=== PATIENT | female | born 1975 | race Caucasian/White ===

== ENCOUNTER 2020-09-02 02:31 | Outpatient (CLI) | payer OTHER, SELFPAY ==
[2020-09-02 19:46] LABS: SARS-CoV-2 RNA PCR Negative
== END 2020-09-02 02:32 | disposition home or self-care (01) ==
LOC: ANHCOVIDDT 02:31
PROVIDERS: PCP Family Medicine; Visit Provider Internal Medicine Gastroenterology
DX: Z01.818 Encounter for other preprocedural examination (principal); Z20.828 Contact with and (suspected) exposure to other viral communicable diseases
CPT/HCPCS: 87635; C9803; U0003

== ENCOUNTER 2020-09-05 04:34 | Day surgery (SDC) | payer OTHER, SELFPAY ==
[2020-09-01 11:25] VITALS: BMI 28.0
[2020-09-05 11:56] VITALS: BP 100/63; PULSE 68; RESP 16; TEMP 36.6; O2SAT 94
[2020-09-05] MEDS: LACTATED RINGERS 1,000 ML 150 ML IV CONT (11:57)
--- NOTE | 2020-09-05 12:31 | P.PNAN_ITS ---
Anes - Initial Pre Proc Eval Procedure: Operation Date: 09/05/20 13:15 Proposed Procedures p Colonoscopy - Edgar Jorgensen MD Date/Time: 09/05/20 12:31 Surgeon: Edgar Jorgensen MD Pre Op Diagnosis: Rectal Bleeding Patient Data Age: 45 Gender: F Height: 1.6 m Weight: 70.8 kg Last Vital Signs Temp 36.6 C 09/05/20 11:56 Pulse 68 09/05/20 11:56 Resp 16 09/05/20 11:56 BP 100/63 09/05/20 11:56 Pulse Ox 94 09/05/20 11:56 Allergies Allergy/AdvReac Type Severity Reaction Status Date / Time Penicillins Allergy Intermediate Hives Verified 09/05/20 11:50 Home Medications Medication Instructions Recorded Confirmed Type levothyroxine 137 mcg PO DAILY 09/01/20 09/01/20 History Patient hx anesthesia problems: none Family hx anesthesia problems: none PMFSH Past Medical History Medical History Hypothyroidism Family History Family History Mother Family history of malignant neoplasm of breast in first degree relative Social History Social History Smoking status: Never smoker Second hand tobacco smoke exposure: No Alcohol intake: current Substance use: never Substance use type: does not use Gender identity (if verbalized by the patient): Female Spiritual care concerns: No Agree to blood products: Yes Anes - Eval Final PreProcedure Day of Procedure 09/05/20 12:31 Patient weight: overweight Heart: regular rate and rhythm Lungs: clear to auscultation and normal air movement Airway: Mallampati scale class II Neurological: alert and oriented Last oral intake: >/= 8 hours ASA classification: II Emergent: no Anesthetic plan: proceed Anesthesia type and monitoring: general GIVS Informed Consent: The patient's anesthetic plan and its attendant risks and benefits were discussed with the patient/family/POA. Questions were solicited and answers provided to the satisfaction of the patient/family/POA.
--- NOTE | 2020-09-05 12:40 | PM.HPGS ---
History of Present Illness History of Present Illness Consent: Risks, benefits, and alternatives have been discussed and questions answered. Patient agrees to proceed with procedure. Chief complaint: Rectal Bleeding Narrative: Alka Montano is a 45 year old female with rectal bleeding, never had a colonoscopy Review of Systems Constitutional: Constitutional: Denies headache(s) and Denies weakness Eyes: Eyes: Denies blurry vision ENT: Reports Normal hearing present, Denies headache(s) and Denies neck pain Cardiovascular: Cardiovascular: Denies chest pain and Denies dyspnea Respiratory: Respiratory: Denies dyspnea Gastrointestinal: Gastrointestinal: Reports no additional gastrointestinal complaints Genitourinary: Genitourinary: Denies dysuria Musculoskeletal: Musculoskeletal: Denies neck pain Integumentary/Breasts: Skin/Breast: Denies dry skin Neurologic: Reports Normal hearing present, Denies headache(s) and Denies weakness Psychiatric: Psychiatric: Denies anxiety Endocrine: Endocrine: Denies change in body appearance Hematologic/Lymphatic: Hematologic/Lymphatic: Denies easy bleeding Allergic/Immunologic: Allergic/Immunologic: Denies urticaria PMFSH Past Medical History Medical History Hypothyroidism Family History Family History Mother Family history of malignant neoplasm of breast in first degree relative Social History Social History Smoking status: Never smoker Second hand tobacco smoke exposure: No Alcohol intake: current Substance use: never Substance use type: does not use Gender identity (if verbalized by the patient): Female Spiritual care concerns: No Agree to blood products: Yes Meds Home Medications and Allergies Home Medications Medication Instructions Recorded Confirmed Type levothyroxine 137 mcg PO DAILY 09/01/20 09/01/20 History Allergies Allergy/AdvReac Type Severity Reaction Status Date / Time Penicillins Allergy Intermediate Hives Verified 09/05/20 11:50 Vital Signs Vital Signs - 24 hr 09/05/20 11:56 Temperature 97.9 F Pulse Rate 68 Respiratory Rate 16 Blood Pressure 100/63 Pulse Oximetry 94 Exam Const: General: comfortable and no acute distress HENMT: General nose exam: Normal nares present Eyes: General: appearance normal, both eyes and all related structures Neck: Neck: no JVD Resp: Auscultation: clear to auscultation bilaterally Cardio: Rate: regular rate Rhythm: regular rhythm GI: Inspection: non-distended GI Palp: Yes Soft to palpation Skin: General skin exam: normal color Neuro: General: gait normal Speech: normal speech Extrem: General: normal to inspection Psych: Mental Status: mental status grossly normal Assessment and Plan Assessment and plan (1) BRBPR (bright red blood per rectum): Code(s): K62.5 - Hemorrhage of anus and rectum Status: Acute Assessment and Plan: will proceed with colonoscopy
[2020-09-05 13:03] VITALS: BP 111/85; PULSE 88; RESP 23; O2SAT 100
[2020-09-05 13:13] VITALS: BP 88/64; PULSE 84; RESP 19; O2SAT 100
[2020-09-05 13:23] VITALS: BP 104/69; PULSE 74; RESP 18; O2SAT 100
== END 2020-09-05 13:30 | disposition home or self-care (01) ==
PROVIDERS: PCP Family Medicine; Visit Provider Internal Medicine Gastroenterology
PROC: 0DJD8ZZ Inspection of Lower Intestinal Tract, Via Natural or Artificial Opening Endoscopic (ICD-10-PCS; CPT 45378; principal; 2020-09-05 13:15)
DX: K92.1 Melena (principal); K64.8 Other hemorrhoids; E03.9 Hypothyroidism, unspecified
CPT/HCPCS: 45378; J2370; J2704; J7120

== ENCOUNTER 2022-06-23 09:57 | Outpatient (CLI) | payer OTHER, SELFPAY ==
[2022-06-23 18:55] LABS: Cholesterol 234 mg/dL (0-200); HDL Direct 70 mg/dL; Triglycerides 94 mg/dL (<150)
[2022-06-23 19:06] LABS: LDL Cholesterol Direct 116 mg/dL
[2022-06-23 19:26] LABS: Thyroid Stimulating Hormone 0.879 uIU/mL (0.465-4.680)
[2022-06-23 19:45] LABS: Hemoglobin A1C 4.9 % (<5.7)
[2022-06-23 19:48] LABS: Free T4 Free Thyroxine 1.54 ng/mL (0.78-2.19)
== END 2022-06-23 09:58 | disposition home or self-care (01) ==
LOC: ANHGOSHLAB 09:59
PROVIDERS: PCP Emergency Medicine; Visit Provider Emergency Medicine
DX: E03.9 Hypothyroidism, unspecified (principal); E66.9 Obesity, unspecified
CPT/HCPCS: 36415; 80061; 83036; 84439; 84443

== ENCOUNTER → 2022-06-23 13:09 | Outpatient (CLI) | payer OTHER, SELFPAY ==
--- NOTE | ~2022-06-23 | MM_ITS ---
EXAMINATION: MM screening peg BI w irma HISTORY: Screening mammogram TECHNIQUE: Craniocaudal and mediolateral oblique 3-D tomosynthesis images were obtained and synthetic 2-D images were generated. Bilateral rotated lateral CC views. CAD analysis was submitted and interp reted. COMPARISON: No prior mammogram is available for comparison at this institution. BREAST PARENCHYMAL COMPOSITION: The breasts are extremely dense, which lowers the sensitivity of mamm ography. FINDINGS: Microcalcifications are noted in the lower inner quadrant of the right breast; magnificatio n views are recommended. Bilateral mammographic asymmetries; bilateral diagnostic mammography and breast ultrasound examinatio n are recommended. IMPRESSION: 1. Microcalcifications, lower inner right breast and bilateral mammographic asymmetries 2. Bilateral diagnostic mammography and breast ultrasound examination are recommended. BI-RADS Category 0: Incomplete: Needs additional imaging evaluation. Reviewed, dictated and finalized at location A. IMPRESSION: 1. Microcalcifications, lower inner right breast and bilateral mammographic asy mmetries 2. Bilateral diagnostic mammography and breast ultrasound examination are recom mended. BI-RADS Category 0: Incomplete: Needs additional imaging evaluation.
== END ==
PROVIDERS: PCP Emergency Medicine; Visit Provider Obstetrics & Gynecology
DX: Z12.31 Encounter for screening mammogram for malignant neoplasm of breast (principal); R92.8 Other abnormal and inconclusive findings on diagnostic imaging of breast
CPT/HCPCS: 77063; 77067

== ENCOUNTER → 2022-07-14 07:57 | Outpatient (CLI) | payer OTHER, SELFPAY ==
--- NOTE | ~2022-07-14 | MMUS_ITS ---
EXAMINATION: MM diagnostic peg BI w irma, US breast BI complete HISTORY: Right microcalcifications and bilateral mammographic asymmetries on 06/23/2022 screening mammo gram TECHNIQUE: Additional 3-D tomosynthesis images of both breasts were performed and synthetic 2-D image s were generated. Right breast magnification views. CAD analysis was submitted and interpreted. High resolution complete bilateral breast ultrasound including all 4 quadrants and subareolar area of each breast was performed. COMPARISON: 06/23/2022 bilateral screening mammogram examination BREAST PARENCHYMAL COMPOSITION: The breasts are extremely dense, which lowers the sensitivity of mamm ography. FINDINGS: MAMMOGRAPHIC FINDINGS: No reproducible suspicious mass or architectural distortion is evident. There are grouped granular appearing and minimal linear microcalcifications are noted lower outer rig ht breast. These have increased in number since 05/04/2021. Stereotactic biopsy is recommended. ULTRASOUND: Right breast: No suspicious mass or shadowing or other significant sonographic finding is noted. Left breast: 9:00 2.5 cm from nipple: 5.6 mm benign cyst with through transmission posterior enhancement. No inter nal vascularity. No suspicious left breast mass or shadowing is detected. IMPRESSION: 1. Grouped indeterminate microcalcifications in the lower outer right breast 2. Stereotactic biopsy of right lower outer quadrant breast microcalcifications is recommended BI-RADS category 4, suspicious findings. Dr. Coy telephoned the report and stereotactic biopsy recommendation of the right breast on 07/14 at 0923 hours to Electromechanical Equipment Assembler Shima. Reviewed, dictated and finalized at location A. IMPRESSION: 1. Grouped indeterminate microcalcifications in the lower outer right breast 2. Stereotactic biopsy of right lower outer quadrant breast microcalcifications is recommended BI-RADS category 4, suspicious findings. Dr. Coy telephoned the report and stereotactic biopsy recommendation of the ri ght breast on 07/14 2022 at 0923 hours to Electromechanical Equipment Assembler Shima. IMPRESSION: 1. Grouped indeterminate microcalcifications in the lower outer right breast 2. Stereotactic biopsy of right lower outer quadrant breast microcalcifications is recommended BI-RADS category 4, suspicious findings. Dr. Coy telephoned the report and stereotactic biopsy recommendation of the [facility] breast on 07/14 2022 at 0923 hours to Electromechanical Equipment Assembler Shima.
== END ==
PROVIDERS: PCP Obstetrics & Gynecology; Visit Provider Obstetrics & Gynecology
DX: R92.8 Other abnormal and inconclusive findings on diagnostic imaging of breast (principal)
CPT/HCPCS: 76641; 77062; 77066; G0279

== ENCOUNTER 2023-09-07 08:17 | Outpatient (CLI) | payer OTHER, SELFPAY ==
[2023-09-07 12:01] LABS: Hematocrit 41.5 % (37.0-47.0); Hemoglobin 13.2 g/dL (12.0-15.0); Mean Corpuscular HGB Conc 31.8 g/dl (32-36); Mean Corpuscular Hemoglobin 29.7 pg (26-34); Mean Corpuscular Volume 93.3 fl (80-100); Mean Platelet Volume 10.8 fl (7.4-10.4); Platelet Count Result 316 k/mm3 (150-375); Red Blood Count 4.45 M/mm3 (4.2-5.4); Red Cell Distribution Width 13.1 % (11.5-14.5); White Blood Count 5.6 K/mm3 (4.5-10.0)
[2023-09-07 12:12] LABS: Alanine Aminotransferase 17 U/L (6-35); Alkaline Phosphatase 55 U/L (38-126); Anion Gap 5 mmol/L (8-16); Aspartate Amino Transferase 33 U/L (14-36); Bilirubin,Total 0.4 mg/dL (0.2-1.3); Blood Urea Nitrogen 9 mg/dL (7-17); Calcium 8.9 mg/dL (8.4-10.2); Carbon Dioxide 30 mmol/L (22-30); Chloride 106 mmol/L (98-107); Cholesterol 186 mg/dL (0-200); Estimated Glomerular Filt Rate > 60; Glucose 91 mg/dL (65-110); HDL Direct 52 mg/dL; Potassium 4.4 mmol/L (3.4-5.0); Sodium 141 mmol/L (137-145); Triglycerides 51 mg/dL (<150)
[2023-09-07 12:24] LABS: LDL Cholesterol Direct 103 mg/dL
[2023-09-07 12:40] LABS: Thyroid Stimulating Hormone 0.029 uIU/mL (0.465-4.680)
[2023-09-07 13:03] LABS: Free T4 Free Thyroxine 2.19 ng/mL (0.78-2.19)
== END 2023-09-07 08:18 | disposition home or self-care (01) ==
LOC: ANHGOSHLAB 08:19
PROVIDERS: PCP Emergency Medicine; Visit Provider Physician Assistant
DX: E66.9 Obesity, unspecified (principal); E78.5 Hyperlipidemia, unspecified
CPT/HCPCS: 36415; 80053; 80061; 84439; 84443; 85027

== ENCOUNTER 2023-09-12 12:48 | Outpatient (CLI) | payer OTHER, SELFPAY ==
[2023-09-12 19:49] LABS: Free T4 Free Thyroxine 1.23 ng/mL (0.78-2.19)
== END 2023-09-12 12:49 | disposition home or self-care (01) ==
LOC: ANHGOSHLAB 12:51
PROVIDERS: PCP Emergency Medicine; Visit Provider Emergency Medicine
DX: E03.9 Hypothyroidism, unspecified (principal)
CPT/HCPCS: 36415; 84439; 84443

== ENCOUNTER 2024-01-20 15:43 | Outpatient (CLI) | payer OTHER, SELFPAY ==
[2024-01-20 18:59] LABS: Free T4 Free Thyroxine 1.36 ng/mL (0.78-2.19)
[2024-01-20 19:13] LABS: Thyroid Stimulating Hormone 0.101 uIU/mL (0.465-4.680); Total Triiodothyronine (T3) 0.95 NG/ML (0.97-1.69)
== END 2024-01-20 15:44 | disposition home or self-care (01) ==
LOC: ANHGOSHLAB 15:45
PROVIDERS: PCP Emergency Medicine; Visit Provider Emergency Medicine
DX: E03.9 Hypothyroidism, unspecified (principal)
CPT/HCPCS: 36415; 84439; 84443; 84480

== ENCOUNTER 2024-12-28 08:44 | Outpatient (CLI) | payer OTHER, SELFPAY ==
--- OUTSIDE RECORDS SUMMARY | 2024-12-28 09:07 | XMS_ITS | Referral Summary ---
Author Organization [facility] Address [address] [place] [address] Care Team Providers Care General Repair Mechanic Name Role Phone Rajan Adams MD Unavailable [phone] Rajan Adams MD Unavailable [phone] Ori Lucas MD Primary Care Provider [phone] Encounters Date Type Department Care Team Description 10/31/2024 Orders Only [facility] [address] [place] [address] Unknown, Notinfile from Last 3 Months Allergies Active Allergy Reactions Criticality Noted Date Comments Penicillins Rash Medium 08/24/2022 Medications levothyroxine (SYNTHROID) 137 mcg tabletIndicatio ns:hypothyroidi sm Take 1 tablet (137 mcg total) by mouth increment manager before breakfast 2 Active UNABLE TO FINDIndications :supplement Take 1 each by mouth 2 (two) times a day Spark drinks Active ibuprofen (ADVIL,MOTRIN) 200 mg tab/cap Take 2 tablet/capsule (400 mg total) by mouth every 6 (six) hours as needed for pain Active polyethylene glycol (MIRALAX) 17 gram packetIndicatio ns:constipation Take 1 packet (17 g total) by mouth daily as needed for constipation Active cyclobenzaprine (FLEXERIL) 10 mg tabletIndicatio ns:Post Surgical Pain Take one tablet up to 3 times per day as needed for muscle spasms. 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 2-4 times a month 02/23/2023 Q2: How many drinks containi ng alcohol do you have on a typical day when you are drinking? 1 or 2 02/23/2023 Q3: How often do you have si x or more drinks on one occasion? Never 02/23/2023 Personal Safety Answer Date Recorded Have you ever been in or are you currently in a harmful physical or emotional relationship or is someone making you feel afraid or unsafe? Denies 02/23/2023 Comments No Sex and Gender Information Value Date Recorded Sex Assigned at Not on file Legal Sex Female 10:55 AM CDT Gender Identity Not on file Sexual Orientation Not on file Last Filed Vital Signs Vital Sign Reading Time Taken Comments Blood Pressure 107/55 02/23/2023 1:05 PM CDT Pulse 83 02/23/2023 1:05 PM CDT Temperature 36.6 C (97.9 F) 02/23/2023 1:05 PM CDT Respiratory Rate 14 02/23/2023 1:05 PM CDT Oxygen Saturation 97% 02/23/2023 1:05 PM CDT Inhaled Oxygen Concentration - - Weight 72.6 kg (160 lb 0.9 oz) 06/08/2024 2:33 P M CDT Height 160 cm (5' 2.99 ) 06/08/2024 2:33 PM CDT Body Mass Index 28.36 06/08/2024 2:33 PM CDT Plan of Treatment Not on file Medical Devices Implanted Type Area Customer Service Technician Device Identifier Shelf Expiration Date Model / Serial / Lot [employer] 13.4cm High Strength Cohesive Plus Smooth P5.3cm High Projection [id number] - [id number] - [id number] Implanted:Qty: 1 on 02/23/2023 by Andrzej Miles MD at [facility] Breast Left: Breast [employer] 11/05/2027 [id number] / [id number] / Description:Implant pause do ne prior to opening all implants [employer] 13.4cm High Strength Cohesive Plus Smooth P5.3cm High Projection [id number] - [id number] - [id number] Implanted:Qty: 1 on 02/23/2023 by Andrzej Miles MD at [facility] Breast Right: Breast [employer] 11/14/2027 [id number] HP / [id number] / [employer] Magseed 18ga 7cm Marker Breast Biopsy [id number] - [id number] Implanted:Qty: 1 on 09/27/2022 at [facility] Right: Breast [employer] [id number] 06/16/2026 [id number] / / [id number] [employer] Alloderm Select [id number] Allograft Regenerative Thk.4-2.4mm Thick [id number] - [id number] Implanted:Qty: 1 on 11/18/2022 by Andrzej Miles MD at [facility] Left: Breast [employer] 02/14/2024 [id number] / / [id number] Description:Implant pause do ne prior to opening all implants [employer] Alloderm Select 75m22tr Allograft Regenerative Thk.4-2.4mm Thick [id number] - [id number] Implanted:Qty: 1 on 11/18/2022 by Andrzej Miles MD at [facility] Right: Breast [employer] 02/14/2024 [id number] / / [id number] Explanted Type Area Customer Service Technician Device Identifier Shelf Expiration Date Model / Serial / Lot [employer] Implant Mammary Natrelle Te Smooth [id number]-[id number]-[id number] With Fourte [id number]-58-[id number] - [id number] - [id number] Implanted:Qty: 1 on 11/18/2022 by Andrzej Miles MD at [facility] Explanted:Qty: 1 on 02/23/2023 by Andrzej Miles MD at [facility] Left: Breast [employer] 01/12/2027 133S-MX-13 -T / [id number] / [id number] Description:Filled with 100m l saline [employer] Implant Mammary Natrelle Te Smooth [id number]-Cj-79-T With Fourte [id number]-96-[id number] - [id number] - [id number] Implanted:Qty: 1 on 11/18/2022 by Andrzej Miles MD at [facility] Explanted:Qty: 1 on 02/23/2023 at [facility] Right: Breast [employer] 02/19/2027 133S-MX-13 -T / [id number] / Description:Filled with 100m l saline Upon explantation, lot # [id number] noted Procedures Procedure Name Priority Date/Time Associated Diagnosis Comments SURGICAL PATHOLOGY Routine 10/31/2024 12 :00 AM SEWING INSPECTOR from Last 3 Months Results * Surgical pathology (10/31/2024 12:00 AM SEWING INSPECTOR) Skin, shave biopsy 10/31/2024 11/02/2024 7:08 AM SEWING INSPECTOR Narrative 11/06/2024 5:18 PM SEWING INSPECTOR [facility] results best viewed via link to PDF [facility] [address] [place] [address], [address], [place] [address] [email or web address] Note to Patients: This report may contain a detailed description of human tissue sent by a health care provider to the laboratory for pathologic evaluation. The content of this report is essential for diagnosis and may provide important critical findings. This information may be unfamiliar to patients to review without a medical professional present. It is advised that the patient review this report in the presence of a health care provider who can answer questions and explain the details. FINAL REPORT Patient Information: PATIENT NAME: ALKA MONTANO SEX: F : 1975 (Age: 49) Specimen Information: COLLECTED: 10/31/2024 RECEIVED: 11/02/2024 REPORTED: 11/06/2024 Submitting Physician Information: Sonia Cm, [facility], [address] [place], [place] [id number], DERMATOPATHOLOGY REPORT RESULTS DIAGNOSIS: SKIN, LEFT PROXIMAL DORSAL FOREARM, SHAVE BIOPSY: PIGMENTED ACTINIC KERATOSIS alhaji/lac By this signature, I attest that the above diagnosis is based upon my personal examination of the slides(and/or other material indicated in the diagnosis). Neisha Love M.D. Report Electronically Reviewed and Signed Out By Neisha Love M.D. 11/06/2024 17:18:41 CLINICAL INFORMATION NEOPLASM OF UNCERTAIN BEHAVIOR VS IRRITATED SK VS PIGMENTED BCC SPECIMEN DATA MICROSCOPIC DESCRIPTION: Buds of atypical keratinocytes emanate from the undersurface of a pigmented epidermis. (L57.0) GROSS DESCRIPTION: Received in a formalin-containing bottle is a superficial fragment of berger, variegated and scaly skin measuring 0.8 by 0.5 by 0.1 cm. The surgical margin is inked blue. The specimen is sectioned into 2 pieces and submitted entirely in a single cassette. Due to shrinkage, measurements may be different than those at time of procedure. dh/mxf ICD-9 A; ZSD.27 Clerical Data A; 59871 The characteristics of special, immunohistochemical, and immunofluorescence stains and in-situ hybridization tests performed by the [facility] were deemed acceptable in ongoing vendor quality supervisor measures and in compliance with regulations drawn from the Clinical Laboratory Improvement Act ue7150 (CLIA '88). Control reactions for all stains performed were deemed adequate and appropriate by a pathologist prior to evaluation of patient tissue. Some diagnoses were rendered with the assistance of laboratory-developed tests utilizing analyte-specific reagents; the performance characteristic of these tests were determined by [facility] and are not cleared or approved by the [place] Food an Drug administration. Laboratory developed test may only be performed in a facility that is certified by the [facility] as a high-complexity laboratory under CLIA '88. These tests are used for clinical purposes and are not investigational. us Notinfile Unknown LAB PATHOLOGY ORDERABLES Final Result from Last 3 Months Insurance [facility] CHO[facility] PLUS [facility] CHOICE PLUS [facility] CLAIMS Care Teams General Repair Mechanic Relationship Specialty Start Date End Date Ori Lucas MD [address] [place] [address] PCP - General Family Medicine 08/24/22 Rajan Adams MD [address] [place] [address] Referring Physician Obstetrics and Gynecology 07/14/22 Rajan Adams MD [address] [place] [address] Referring Physician Obstetrics and Gynecology 08/24/22
--- OUTSIDE RECORDS SUMMARY | 2024-12-28 09:07 | XMS_ITS | Clinical Summary ---
Author Organization [facility] Address [facility] [place] [address] Care Team Providers Care Multifocal Button Generator Name Role Phone Rajan Adams MD Unavailable [phone] Rajan Adams MD Unavailable [phone] Ori Lucas MD Primary Care Provider [phone] Allergies Active Allergy Reactions Criticality Noted Date Comments Penicillins Rash Medium 08/24/2022 Medications levothyroxine (SYNTHROID) 137 mcg tabletIndicatio ns:hypothyroidi sm Take 1 tablet (137 mcg total) by mouth power technician before breakfast 2 Active UNABLE TO FINDIndications [...] breast on mammogram 08/24/2022 Abnormal mammogram 08/24/2022 Encounters Date Type Department Care Team Description 10/31/2024 Orders Only [facility] [address] [place] [address] Unknown, Notinfile from Last 3 Months Surgical History Surgery Date Site/Laterality Comments BREAST BIOPSY 08/24/2022 Right DCIS APPENDECTOMY 10/17/2008 - 10/16/2009 WISDOM TOOTH EXTRACTION ABLATION 10/17/2020 - 10/16/2021 uterine COLONOSCOPY BREAST LUMPECTOMY 10/17/2021 - 10/16/2022 MASTECTOMY, PARTIAL 10/04/2022 MAGNETIC SEED LOCALIZATION LUMPECTOMY BREAST BIOPSY 10/17/2022 - 11/16/2022 RE-EXCISION BREAST BIOPSY CAVITY MASTECTOMY 11/17/2022 - 12/14/2022 with reconstruction Medical History Medical History Date Comments Thyroid disease Frequent headaches Breast cancer (HCC) Hypothyroidism Family History Medical History Relation Name Comments Breast cancer Maternal Great-Grandmother Breast cancer Mother BRCA negative Breast cancer Mother's Sister BRCA negati ve Anesthesia problems Neg Hx Relation Name Status Comments Maternal Great-Grandmother Alive Mother Mother's Sister Social History Tobacco Use Types Packs/Day Years Used Date Smoking Tobacco: Former Cigarettes - 1999 Passive Smoke Exposure: Never Smokeless [...] on file Sexual Orientation Not on file Obstetrics History Last Filed Vital Signs Vital Sign Reading [...] 06/08/2024 2:33 PM CDT Plan of Treatment Health Maintenance Due Date Last Done Comments Breast Cancer Screening-Mammogram 1976 Cervical Cancer Screening 1976 Colon Cancer Screening-Colonoscopy 1976 Depression Screening 1976 Hepatitis C Screening 1976 Hepatitis B Screening 1994 Regular Well Visit/Exam 18-64 1994 DTaP/Tdap/Td Vaccine (3 - Td or Tdap) 06/12/2022 06/12/2012, 07/21/2006 Covid-19 Vaccine ( season) 2024 10/13/2021, 12/26/2020, 11/28/2020 Influenza Vaccine (#1) 2024 6, 08/25/2010, 09/05/2007, Additional history exists Pneumococcal vaccine <65 Aged Out No longer eligible based on patient's age to complete this topic Medical Devices Implanted Type Area Material Handler 2Nd Shift Device Identifier Shelf Expiration Date Model / Serial / Lot Sientra Inc 13.4cm High Strength Cohesive Plus Smooth P5.3cm High Projection [id number] - [id number] - [id number] Implanted:Qty: 1 on 02/23/2023 by Andrzej Miles MD at [facility] Breast Left: Breast Sient[employer] Inc 11/05/2027 44578-116 HP / [id number] / Description:Implant pause do ne prior to opening all implants Sientra Inc 13.4cm High Strength Cohesive Plus Smooth P5.3cm High Projection [id number] - [id number] - [id number] Implanted:Qty: 1 on 02/23/2023 by Andrzej Miles MD at [facility] Breast Right: Breast S[employer] Inc 11/14/2027 11827-789 HP / [id number] / [employer] Magseed 18ga 7cm Marker Breast Biopsy [id number] - [id number] Implanted:Qty: 1 on 09/27/2022 at [facility] Right: Breast [employer] [id number] 06/16/2026 [id number] / / [id number] Allergan [employer] Alloderm Select 85m73qr Allograft Regenerative Thk.4-2.4mm Thick [id number] - [id number] Implanted:Qty: 1 on 11/18/2022 by Andrzej Miles MD at [facility] Left: Breast [employer] 02/14/2024 [id number] / / [id number] Description:Implant pause do ne prior to opening all implants [employer] Alloderm Select 30x36rf Allograft Regenerative Thk.4-2.4mm Thick [id number] - [id number] Implanted:Qty: 1 on 11/18/2022 by Andrzej Miles MD at [facility] Right: Breast [employer] 02/14/2024 [id number] / / [id number] Explanted Type Area Material Handler 2Nd Shift Device Identifier Shelf Expiration Date Model / Serial / Lot [employer]er[employer] Implant Mammary Natrelle Te Smooth 045b-Bt-67-T With Fourte 611b-Gd-76-T - [id number] - [id number] Implanted:Qty: 1 on 11/18/2022 by Andrzej Miles MD at [facility] Explanted:Qty: 1 on 02/23/2023 by Andrzej Miles MD at [facility] Left: Breast [employer] 01/12/2027 133S-MX-13 -T / [id number] / [id number] Description:Filled with 100m l saline [employer] Implant Mammary Natrelle Te Smooth 084c-Vz-60-T With Fourte 560l-Wf-49-T - [id number] - [id number] Implanted:Qty: 1 on 11/18/2022 by Andrzej Miles MD at [facility] Explanted:Qty: 1 on 02/23/2023 at [facility] Right: Breast [employer] 02/19/2027 133S-MX-13 -T / [id number] / Description:Filled with 100m l saline Upon explantation, lot # [id number] noted Procedures Procedure Name Priority Date/Time Associated Diagnosis Comments SURGICAL PATHOLOGY Routine 10/31/2024 12 :00 AM COGNOS ANALYST from Last 3 Months Results * Surgical pathology (10/31/2024 12:00 AM COGNOS ANALYST) Skin, shave biopsy 10/31/2024 11/02/2024 7:08 AM COGNOS ANALYST Narrative 11/06/2024 5:18 PM COGNOS ANALYST EPIC results best viewed via link to PDF [facility] [address] [place] [address], [address], [place] [address] [email or web address] Note to Patients: This report may contain [...] RECEIVED: 11/02/2024 REPORTED: 11/06/2024 Submitting Physician Information: NINOSKA [facility], [address] [place] [address], DERMATOPATHOLOGY REPORT RESULTS DIAGNOSIS: SKIN, LEFT PROXIMAL [...] dh/mxf ICD-9 A; ZSD.27 Clerical Data A; 04323 The characteristics of special, immunohistochemical, and immunofluorescence stains and in-situ hybridization tests performed by the [facility] were deemed acceptable in ongoing senior quality assurance specialist measures and in compliance with regulations drawn from the Clinical Laboratory Improvement Act uk4441 (CLIA '88). Control reactions for all stains performed were deemed adequate and appropriate by a pathologist prior to evaluation of patient tissue. Some diagnoses were rendered with the assistance of laboratory-developed tests utilizing analyte-specific reagents; the performance characteristic of these tests were determined by [facility] and are not cleared or approved by the [place] Food an Drug administration. Laboratory developed test may only be performed in a facility that is certified by the [facility] as a high-complexity laboratory under CLIA '88. These tests are used for clinical purposes and are not investigational. us Notinfile Unknown LAB PATHOLOGY ORDERABLES Final Result from Last 3 Months Insurance [facility]PPO Address: [address] [place] [address] [facility] H[facility]/PPO Address: [address] [place] [address] Care Teams Multifocal Button Generator Relationship Specialty Start Date End Date Ori Lucas MD [address] [place] [address] PCP - General Family Medicine 08/24/22 Rajan Adams MD [address] [place] [address] Referring Physician Obstetrics and Gynecology 07/14/22 Rajan Adams MD [address] [place] [address] Referring Physician Obstetrics and Gynecology 08/24/22
--- OUTSIDE RECORDS SUMMARY | 2024-12-28 09:07 | XMS_ITS | Continuity of Care Document ---
Author Name [facility] Organization [facility] Care Team Providers Care Final Expense Agent Name Role Phone [facility] Unavailable Unavailable Medications Combined list of outpatient medications from Department of Defense and Veterans Affairs facilities.Medications provided include 1) outpatient medications from the last 15 months, and 2) patient-reported medications. Medication Details Route Status Patient Instructions Prescription Expires Prescription Number Last Dispense Date Ordering Provider Order Date Order Qty Source levothyroxi ne 137 mcg oral tablet levothyr oxine 137 mcg oral tablet Start Date: 06/02/20 Status: Ordered Repeat number: 1 Ordered 2019 No Facilit y Access levothyroxi ne 137 mcg oral tablet levothyr oxine 137 mcg oral tablet Start Date: 09/05/19 Status: Ordered Repeat number: 1 Ordered 2019 No Facilit y Access Allergies, Adverse Reactions, Alerts Combined list of allergies from Department of Defense and Veterans Affairs facilities. It does not include entries that were removed or entered in error. Substance Category Reaction Severity Reaction type Status Date Reported Comments Source Penicillins Propensity to adverse reactions to substance Urticaria Active 5 Unknown Organizat ion Immunizations Combined list of available immunizations from the Department of Defense and Veterans Affairs facilities. Immunization Series Date Given Administered By Site Reaction Lot Number CVX Code Drug Risk Investigator Status Comments Source influenza, seasonal, injectable-pf 2015 zzRig ht Arm [id number] Seqirus complet ed influenza , seasonal, injectabl e-pf 09/29/16 Given Ambulat ory Pharmac y Td (adult)-PF 2011 zzRig ht Arm [id number] 113 sanofi pasteur complet ed Td (adult)-P F 06/12/12 Given Ambulat ory Pharmac y influenza virus vaccine, live 2009 [id number] 111 MediRadio Systemes Ingen[employer] Inc comple t ed influenza virus vaccine, live 08/25/10 Given Ambulat ory Pharmac y influenza virus vaccine,split 2006 zzLef t Arm [id number] 15 GlaxoSmithKli ne complet ed influenza virus vaccine,s plit 09/05/07 Given Ambulat ory Pharmac y tuberculin purified protein derivative 2006 zzLef t Arm [id number] 96 Unknown complet ed Patient Tolerance : Negative Ambulat ory Pharmac y tetanus, diphtheria, acellular pertu is 2005 zzRig ht Arm [id number] 115 sanofi pasteur complet ed tetanus, diphtheri a, acellular pertussis 07/21/06 Given Ambulat ory Pharmac y influenza virus vaccine, whole virus 2004 zzLef t Arm [id number] 16 sanofi pasteur complet ed influenza virus vaccine, whole virus 09/10/05 Given Ambulat ory Pharmac y tuberculin purified protein derivative 2003 zzLef t Arm [id number] 96 sanofi pasteur complet ed Patient Tolerance : Negative Ambulat ory Pharmac y Procedures Combined list of: 1) Procedures from Department of Veterans Affairs facilities [facility], not all [place] non-surgical procedures are included; 2) All procedures from the Department of Defense facilities. Procedure Procedure Type Code Date Perfomer Comments Sourc e No data available for this section Ambulatory P harmacy Social History Combined list of available smoking, tobacco, and other social history from Department of Defense and Veterans Affairs facilities. Social History Type Response Date Comment Sourc e Sex Representation Female 06/27/2020 Unknow n Organization Sexual Orientation Ambula tory Pharmacy Gender identity Ambulator y Pharmacy Assessment and Plan Combined list of future care activities from Department of Defense and Veterans Affairs facilities (e.g., assessment and plan notes, appointments, orders, and referrals). Additional future care activities may be listed in the Plan of Care section. Result Assessment and Plan Date Source Assessment and Plan No data available for this section 12/28/2024 Ambulatory Pharmacy Functional Status Combined list of recent functional and cognitive assessments recorded at [facility] of Defense and [facility] ([place] Functional [place] Measurement (FIM) Scale: 1 = Total Assistance (Subject = 0% +), 2 = Maximal Assistance (Subject = 25% +), 3 = Moderate Assistance (Subject = 50% +), 4 = Minimal Assistance (Subject = 75% +), 5 = Supervision, 6 = Modified [place] (Device), 7 = Complete [place] (Timely, Safely). Assessment Date/Time Source Assessment Type Assessment Skill Assessment Score Assessment Details No data available for this section
[2024-12-28 18:47] LABS: Alanine Aminotransferase 17 U/L (6-35); Albumin Level 4.5 g/dL (3.5-5.1); Alkaline Phosphatase 59 U/L (38-126); Anion Gap 10 mmol/L (4-12); Aspartate Amino Transferase 65 U/L (14-36); Bilirubin,Total 0.7 mg/dL (0.2-1.3); Blood Urea Nitrogen 12 mg/dL (7-17); Carbon Dioxide 24 mmol/L (22-30); Chloride 104 mmol/L (98-107); Cholesterol 193 mg/dL (0-200); Estimated Glomerular Filt Rate > 60; Glucose 76 mg/dL (65-110); HDL Direct 61 mg/dL; Potassium 4.1 mmol/L (3.4-5.0); Sodium 138 mmol/L (137-145); Triglycerides 69 mg/dL (<150)
[2024-12-28 18:59] LABS: LDL Cholesterol Direct 100 mg/dL
[2024-12-28 19:09] LABS: Free T4 Free Thyroxine 0.99 ng/dL (0.78-2.19)
[2024-12-28 19:19] LABS: Total Triiodothyronine (T3) 0.89 NG/ML (0.97-1.69)
== END 2024-12-28 08:45 | disposition home or self-care (01) ==
LOC: ANHGOSHLAB 08:46
PROVIDERS: PCP Nurse Practitioner Family; Visit Provider Student in an Organized Health Care Education/Training Program
DX: E03.9 Hypothyroidism, unspecified (principal); E78.5 Hyperlipidemia, unspecified; E66.3 Overweight
CPT/HCPCS: 36415; 80053; 80061; 84439; 84443; 84480

== ENCOUNTER 2025-02-04 09:10 | Outpatient (CLI) | payer OTHER, SELFPAY ==
--- OUTSIDE RECORDS SUMMARY | 2025-02-04 10:05 | XMS_ITS | Referral Summary ---
Author Organization [facility] Address [facility] [place] [place] [address] Care Team Providers Care Hollow Tile Partition Erector Name Role Phone Rajan Aadms MD Unavailable [phone] Rajan Adams MD Unavailable Ori Lucas MD Primary Care Provider [phone] Allergies Active Allergy Reactions Criticality Noted Date Comments Penicillins Rash Medium 08/24/2022 Medications levothyroxine (SYNTHROID) 137 mcg tabletIndicatio ns:hypothyroidi sm Take 1 tablet (137 mcg total) by mouth telemarketing manager before breakfast 2 Active UNABLE TO [...] on file Medical Devices Implanted Type Area Pile Operator Device Identifier Shelf Expiration Date Model / Serial / Lot [employer] Inc 13.4cm High Strength Cohesive Plus Smooth P5.3cm High Projection [id number] - [id number] - [id number] Implanted:Qty: 1 on 02/23/2023 by Andrzej Miles MD at [facility] Breast Left: Breast [employer] Inc 11/05/2027 80430-936 HP / [id number] / Description:Implant pause do ne prior to opening all implants [employer] 13.4cm High Strength Cohesive Plus Smooth P5.3cm High Projection [id number] - [id number] - [id number] Implanted:Qty: 1 on 02/23/2023 by Andrzej Miles MD at [facility] Breast Right: Breast [employer] Inc 11/14/2027 66992-107 HP / [id number] / [employer] Magseed 18ga 7cm Marker Breast Biopsy [id number] - [id number] Implanted:Qty: 1 on 09/27/2022 at [facility] Right: Breast [employer] [id number] 06/16/2026 [id number] / / [id number] Allergan [employer] Alloderm Select 56k36zc Allograft Regenerative Thk.4-2.4mm Thick [id number] - [id number] Implanted:Qty: 1 on 11/18/2022 by Andrzej Miles MD at [facility] Left: Breast [employer] 02/14/2024 [id number] / / [id number] Description:Implant pause do ne prior to opening all implants [employer] Alloderm Select 00m83ra Allograft Regenerative Thk.4-2.4mm Thick 5755054 - [id number] Implanted:Qty: 1 on 11/18/2022 by Andrzej Miles MD at [facility] Right: Breast [employer] 02/14/2024 [id number] / / [id number] Explanted Type Area Pile Operator Device Identifier Shelf Expiration Date Model / Serial / Lot [employer] Implant Mammary Natrelle Te Smooth 098e-Nb-94-T With Fourte 406r-Cz-31-T - [id number] - [id number] Implanted:Qty: 1 on 11/18/2022 by Andrzej Miles MD at [facility] Explanted:Qty: 1 on 02/23/2023 by Andrzej Miles MD at [facility] Left: Breast [employer] 01/12/2027 133S-MX-13 -T / [id number] / [id number] Description:Filled with 100m l saline [employer] Implant Mammary Natrelle Te Smooth 406e-Xa-07-T With Fourte 752w-Yh-93-T - [id number] - [id number] Implanted:Qty: 1 on 11/18/2022 by Andrzej Miles MD at [facility] Explanted:Qty: 1 on 02/23/2023 at [facility] Right: Breast [employer] 02/19/2027 133S-MX-13 -T / [id number] / Description:Filled with 100m l saline Upon explantation, lot # [id number] noted Insurance [facility] CHOICE PLUS [address] [place] [address] [facility] CHO[facility] PL[facility] CLAIMS Care Teams Hollow Tile Partition Erector Relationship Specialty Start Date End Date Ori Lucas MD [address] [place] [address] PCP - General Family Medicine 08/24/22 Rajan Adams MD [address] [place] [address] Referring Physician Obstetrics and Gynecology 07/14/22 Rajan Adams MD [address] [place] [address] Referring Physician Obstetrics and Gynecology 08/24/22
--- OUTSIDE RECORDS SUMMARY | 2025-02-04 10:05 | XMS_ITS | Clinical Summary ---
Author Organization [facility] [place] [address] Care Team Providers Care Entry Level Manager Name Role Phone Rajan Adams MD Unavailable Rajan Adams MD Unavailable [phone] Ori Lucas MD Primary Care Provider [phone] Allergies Active Allergy Reactions Criticality Noted Date Comments Penicillins Rash Medium 08/24/2022 Medications levothyroxine (SYNTHROID) 137 mcg tabletIndicatio ns:hypothyroidi sm Take 1 tablet (137 mcg total) by mouth change control specialist before breakfast 2 Active UNABLE TO FINDIndications [...] breast on mammogram 08/24/2022 Abnormal mammogram 08/24/2022 Surgical History Surgery Date Site/Laterality Comments BREAST [...] season) 2024 10/13/2021, 12/26/2020, 11/28/2020 Influenza Vaccine (Season Ended) 2025 09/29/2016, 08/25/2010, 09/05/2007, Additional history exists Pneumococcal vaccine <65 Aged Out No longer eligible based on patient's age to complete this topic Medical Devices Implanted Type Area Hat And Cap Drying Room Attendant Device Identifier Shelf Expiration Date Model / Serial / Lot Sientra Inc 13.4cm High Strength Cohesive Plus Smooth P5.3cm High Projection [id number] - [id number] - [id number] Implanted:Qty: 1 on 02/23/2023 by Andrzej Miles MD at [facility] Breast Left: Breast [employer] Inc 11/05/2027 76143-715 HP / [id number] / Description:Implant pause do ne prior to opening all implants [employer] 13.4cm High Strength Cohesive Plus Smooth P5.3cm High Projection [id number] - [id number] - [id number] Implanted:Qty: 1 on 02/23/2023 by Andrzej Miles MD at [facility] Breast Right: Breast [employer] Inc 11/14/2027 23024-955 / [id number] / [employer] Magseed 18ga 7cm Marker Breast Biopsy [id number] - [id number] Implanted:Qty: 1 on 09/27/2022 at [facility] Right: Breast [employer] [id number] 06/16/2026 [id number] / / [id number] All[employer] Alloderm Select 81w90za Allograft Regenerative Thk.4-2.4mm Thick [id number] - [id number] Implanted:Qty: 1 on 11/18/2022 by Andrzej Miles MD at [facility] Left: Breast [employer] 02/14/2024 [id number] / / [id number] Description:Implant pause do ne prior to opening all implants [employer] Alloderm Select 35o13hs Allograft Regenerative Thk.4-2.4mm Thick [id number] - [id number] Implanted:Qty: 1 on 11/18/2022 by Andrzej Miles MD at [facility] Right: Breast [employer] 02/14/2024 [id number] / / [id number] Explanted Type Area Hat And Cap Drying Room Attendant Device Identifier Shelf Expiration Date Model / Serial / Lot [employer] Implant Mammary Natrelle Te Smooth 095u-Ie-28-T With Fourte 886n-Js-54-T - [id number] - [id number] Implanted:Qty: 1 on 11/18/2022 by Andrzej Miles MD at [facility] Explanted:Qty: 1 on 02/23/2023 by Andrzej Miles MD at [facility] Left: Breast [employer] 01/12/2027 133S-MX-13 -T / [id number] / [id number] Description:Filled with 100m l saline [employer] Implant Mammary Natrelle Te Smooth 687y-Bu-10-T With Fourte 151f-Hs-41-T - [id number] - [id number] Implanted:Qty: 1 on 11/18/2022 by Andrzej Miles MD at [facility] Explanted:Qty: 1 on 02/23/2023 at [facility] Right: Breast [employer] 02/19/2027 133S-MX-13 -T / [id number] / Description:Filled with 100m l saline Upon explantation, lot # [id number] noted Insurance [facility] CHOICE PLUS [facility] PRIME [facility] [place] [place] [address] CLAIMS Care Teams Entry Level Manager Relationship Specialty Start Date End Date Ori Lucas MD [address] [place] [address] PCP - General Family Medicine 08/24/22 Rajan Adams MD [address] [place] [address] Referring Physician Obstetrics and Gynecology 07/14/22 Rajan Adams MD [address] [place] [address] Referring Physician Obstetrics and Gynecology 08/24/22
--- OUTSIDE RECORDS SUMMARY | 2025-02-04 10:06 | XMS_ITS | Continuity of Care Document ---
Author Name [facility] Organization [facility] Care Team Providers Care Software Engineer Backend Name Role Phone [facility] Unavailable Unavailable Problems Combined list of problems from Department of Defense and Veterans Affairs facilities. It does not include entries that were removed or entered in error. 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 Condition DoD visit for: administrative purpose Inactive Condition DoD Anticipatory Guidance: Osteoporosis Inactive Condition DoD Family history of malignant neoplasm of breast Active Condition DoD LYMPHADENOPATHY Inactive Condition DoD FATIGUE Active Condition DoD visit for: laboratory Inactive Condition DoD EUSTACHIAN TUBE DYSFUNCTION RIGHT EAR Active Condition DoD Vaccines Prophylactic Need Against Influenza Inactive Condition DoD ringing in the ears (tinnitus) Active Condition DoD Body Mass Index Inactive Condition DoD Overweight Inactive Condition DoD visit for: new patient eye exam Inactive Condition DoD HYPOTHYROIDISM Active Condition DoD visit for: screening exam thyroid disorders Inactive Condition DoD MIGRAINE HEADACHE Active Condition DoD Vaccines Prophylactic Need Against Viral Diseases Inactive Condition DoD ROUTINE PELVIC EXAM Inactive Condition D oD visit for: screening exam for malignant neoplasm cervix Inactive Condition DoD Aftercare Following Surgery Of Digestive System Inactive Condition DoD Gynecologic Services Contraceptive General Counseling Inactive Condition DoD OVERWEIGHT Inactive Condition Patient w as counseled on the effects of obesity.Patient advised to exercise 5-7 times a week lasting 30 minutes.Proper nutrition reviewed to facilitate weight loss. DoD Patient Education - Proper Use Of Medications Inactive Condition DoD PLANTAR FASCIITIS Active Condition Di scussed stretching of the foot, good proper fitting shoes, a shoe inserts, avoid walking around without shoes, and NSAIDs use. If symptoms are not improved in 3 to 4 weeks through these name items, will refer patient to PT/podiatry. Patient verbalized understanding of the plan. DoD CONSTIPATION Inactive Condition Naaa gelee pt to incorporate fiber into her diet and to drink 2-3 liters of water per day. Continue colace prn. Also may take milk of magnesia or mineral oil prn. [facility] NORMAL ROUTINE HISTORY AND PHYSICAL - Inactive Condition 33yo 6wks s/p uncomplicated . Doing well. Will have 12 month f/u or sooner if questions or concerns develop. Encouraged to continue PNV and . Pt ok'd to resume intercourse if she would like. DoD NORMAL CHECKUP - THIRD TRIMESTER Inactive Condition 32 year-old G2P 1 at 39+6 by lmp=10 week u/s. No active issues. Cvx /-1 RTC 1 week. IOL at 41 weeks if not delivered. GBS (+) [facility] NORMAL CHECKUP (6 - 42 Wk) Inactive Condition DoD LIP NEOPLASM BENIGN Inactive Condition CLINICALLY IMPROVED--DISCUS SED OPTIONS, PT AGREES TO CLOSE OBS WITH POSSIBLE BX IN 1 MONTH IF NO CONTINUED REGRESSION--GREA TER THAN 50% OF TIME SPENT COUNSELLING PATIENT AND/OR FAMILY IF PRESENT. I REVIEWED THE DIAGNOSIS, NATURAL HISTORY, DISEASE PROGRESSION AND ALL TREATMENT OPTIONS. I DISCUSSED THE RISKS, BENFITS, GOALS, AND ALTERNATIVE OF EACH TREATMENT PLAN. I ALSO REVIEWED THE POST TREATMENT COURSE. I ANSWERED ALL QUESTIONS. PATIENT EDUCATION PROVIDED. THERE WERE NO BARRIERS TO LEARNING IDENTIFIED. PATIENT VERBALIZED UNDERSTANDING AND AGREES WITH THE TREATMENT AND EVALUATION PLAN. [facility] ORAL MUCOCELE Inactive Condition DoD bleeding during Inactive Condition Cervical ectropion likely source of bleeding. Yeast infx may have contributed. Rhogam given tonight, though unlikely that bleeding originated from placental origin. Do not suspect abruption at this time. DoD CANDIDIASIS VAGINAL Inactive Condition Terconazole 3 given. [facility] NORMAL Inactive Condition Gbs done today, f/u 1-2 wks DoD NORMAL CHECKUP - SECOND TRIMESTER Inactive Condition F/U 4wks. Reviewed precautions. Will refer to PCM for evaluation of lip on cyst. DoD Supervision Of Normal Inactive Condition exam WNL. f /u one week with routine visit. cvx C/T/H today. DoD Inactive Condition [facility] Patient Education - Facilitating Inactive Condition DoD DYSFUNCTIONAL UTERINE BLEEDING Active Condition DoD visit for: contraceptive surveillance pill Inactive Condition DoD Cervical Pap Smear Inactive Condition Do D ROUTINE GYNECOLOGICAL EXAM WITH CERVICAL PAP SMEAR Inactive Condition DoD Contact Lenses Prescription [facility] Services Inactive Condition DoD SPRAIN Inactive Condition ligament s train inner thigh to R leg, probably caused from pressure strain. Will order PT DoD DRY EYE SYNDROME Active Condition [facility] STRABISMUS NON-PARALYTIC MONOFIXATION SYNDROME Active Condition [facility] visit for: follow-up exam Inactive Condition DoD CONTACT LENS-INDUCED CORNEAL DISORDER Inactive Condition DoD CORNEAL EDEMA CONTACT LENS-INDUCED Inactive Condition DoD ASTIGMATISM - REGULAR Inactive Condition DoD REFRACTIVE ERROR - MYOPIA Active Condition DoD UPPER RESPIRATORY INFECTION ACUTE Inactive Condition SINUS PRESSU RE AND EUSTACHIAN TUBE DYSFUNCTION DoD Physical Examination Inactive Condition MESP. AUDIOLOGY DONE. PLEASE SEE FORM 600. DoD Medications Combined list of outpatient medications from [...] 1 Ordered 2019 No Facilit y Access WEGOVY (semaglutid e), 1.7MG/0.75, PEN INJCTR, SUBCUT, NINO NORDISK, .75 ml SYRINGE Active [id number] 2023 3 Pharmac y Data Transac tion Service Facilit y WEGOVY (semaglutid e), 1.7MG/0.75, PEN INJCTR, SUBCUT, NINO NORDISK, .75 ml SYRINGE Active [id number] 2023 3 Pharmac y Data Transac tion Service Facilit y WEGOVY (semaglutid e), 1MG/0.5ML, PEN INJCTR, SUBCUT, NINO NORDISK, .5 ml SYRINGE Active [id number] 2023 2 Pharmac y Data Transac tion Service Facilit y Allergies, Adverse Reactions, Alerts Combined list of allergies from Department of Defense and Veterans Affairs facilities. It does not include entries that were removed or entered in error. Substance Category Reaction Severity Reaction type Status Date Reported Comments Source Penicillins Drug allergy (disorder) Urticaria [facility]/2005 [facility] Immunizations Combined list of available immunizations from the Department of Defense and Veterans Affairs facilities. Immunization Series Date Given Administered By Site Reaction Lot Number CVX Code Drug Training And Development Project Leader Status Comments Source influenza, seasonal, injectable-pf 2015 zzRig ht Arm [id number] Seqirus complet ed influenza , seasonal, injectabl e-pf 09/29/16 Given Ambulat ory Pharmac y Influenza, seasonal, injectable, preservative free 1 2015 Unknown, Provider [id number] Seqirus (SEQ) complet ed Influenza , seasonal, injectabl e, preservat triston free DoD Td (adult)-PF 2011 zzRig ht Arm [id number] 113 sanofi pasteur complet ed Td (adult)-P F 06/12/12 Given Ambulat ory Pharmac y tetanus and diphtheria toxoids, adsorbed, preservative free, for adult use (5 Lf of tetanus toxoid and 2 Lf of diphtheria toxoid) 2 2011 Unknown, Provider [id number] 113 Sanofi Pasteur (PMC) complet ed tetanus and diphtheri a toxoids, adsorbed, preservat triston free, for adult use (5 Lf of tetanus toxoid and 2 Lf of diphtheri a toxoid) [facility] influenza virus vaccine, live 2009 [id number] [employer] comple t ed influenza virus vaccine, live 08/25/10 Given Ambulat ory Pharmac y influenza virus vaccine, live, attenuated, for intranasal use 1 2009 CASTILLO LUKE [id number] 111 [employer] (MED) complet ed influenza virus vaccine, live, attenuate d, for intranasa l use [facility] influenza virus vaccine,split 2006 zzL t Arm [id number] 15 GlaxoSmithKli ne complet ed influenza virus vaccine,s plit 09/05/07 Given Ambulat ory Pharmac y influenza virus vaccine, split virus (incl. purified surface antigen)-reti red CODE 1 2006 Unknown, Provider [id number] 15 SmithKline (SKB) complet ed influenza virus vaccine, split virus (incl. purified surface antigen)- retired CODE [facility] tuberculin purified protein derivative 2006 zzLef t Arm [id number] 96 Unknown complet ed Patient Tolerance : Negative Ambulat ory Pharmac y tuberculin skin test; purified protein derivative solution, intradermal 1 2006 Unknown, Provider [id number] 96 Other (OT) complet ed tuberculi n skin test; purified protein derivativ e solution, intraderm al DoD tetanus, diphtheria, acellular pertu is 2005 zzRig ht Arm [id number] 115 sanofi pasteur complet ed tetanus, diphtheri a, acellular pertussis 07/21/06 Given Ambulat ory Pharmac y tetanus toxoid, reduced diphtheria toxoid, and acellular pertu is vaccine, adsorbed 1 2005 Unknown, Provider [id number] 115 Sanofi Pasteur (PMC) complet ed tetanus toxoid, reduced diphtheri a toxoid, and acellular pertussis vaccine, adsorbed DoD influenza virus vaccine, whole virus 2004 zzLef t Arm [id number] 16 sanofi pasteur complet ed influenza virus vaccine, whole virus 09/10/05 Given Ambulat ory Pharmac y influenza virus vaccine, whole virus 1 2004 Unknown, Provider [id number] 16 Sanofi Pasteur (PMC) complet ed influenza virus vaccine, whole virus DoD tuberculin purified protein derivative 2003 zzLef t Arm [id number] 96 sanofi pasteur complet ed Patient Tolerance : Negative Ambulat ory Pharmac y tuberculin skin test; purified protein derivative solution, intradermal 1 2003 Unknown, Provider [id number] 96 Sanofi Pasteur (PMC) complet ed tuberculi n skin test; purified protein derivativ e solution, intraderm al DoD Encounters Combined list of: 1) Encounters from Department of Veterans Affairs facilities going backup to the last 18 months, not all VA inpatient encounters are included; 2) Encounters from the Department of Defense facilities going backup to 280 months. Location Location Details Encounter Type Encounter Number Reason For Visit Attending Provider ADM Date DC Date Status Disposition Source [facility]) OUTPATIENT [id number] TABITHA Goetz 01/14 Released w/o Limitations [facility] OUTPATIENT [id number] CLAYTONI CECILIA OSEISAR A 02/18 Released w/o Limitations [facility] [address]([facility]) [facility] [address](Opt [facility] Clinic) OUTPATIENT [id number] eye examine BILL SHRESTHA 03/03 Released w/o Limitations [facility] [address]([facility] pt[facility]r y Clinic) [facility] [address]([facility] Clinic) OUTPATIENT [id number] f/u BILL SHRESTHA 03/09 Released w/o Limitations [facility] [address]([facility] pt[facility]r y Clinic) [address](Opt ometry Clinic) OUTPATIENT [id number] f/u BILL SHRESTHA 03/24 Released w/o Limitations [address](O ptometr y Clinic) [address] [place] [address](Wh[facility] Pod) OUTPATIENT [id number] Leg hurts when I begin to walk HIREN MONROE 03/15 Released w/o Limitations [address] [place] [address]([facility]) [address] [place] [address](Opt ometry ([facility]) ) OUTPATIENT [id number] EYE EXAM ADAM MORRIS 04/03 Released w/o Limitations [address] [place] [address](O ptometr y ([facility])) [address] [place] [address]([facility]) OUTPATIENT [id number] RADHA PRESLEY 05/08 Released w/o Limitations [address] [place] [address]([facility]) [address] [place] [address]([facility]) OUTPATIENT [id number] AYUSH LEDESMA 07/19 Released w/o Limitations [address] [place] [address](P erinata l Center) [address] [place] [address]([facility]) OUTPATIENT [id number] TERE Oleary 07/28 Released w/o Limitations [facility] [place]) [address] [place] [address]([facility]) OUTPATIENT [id number] TERE Ruelas 08/24 Released w/o Limitations [address] [place] [address](P erinata l Center) [address] [place] [address]([facility]) OUTPATIENT [id number] bto/due to resched cricket of SARAH Franz 09/22 Released w/o Limitations [employer]([facility] [place]) [facility]) OUTPATIENT [id number] JOCELYN Yanez 10/27 Released w/o Limitations [employer]([facility]ata [facility] [place]) [employer]([facility]) OUTPATIENT [id number] Vaginal bleedin JEANNA Hough 11/24 Released w/o Limitations [employer]([facility]) [facility]) OUTPATIENT [id number] PAVAN Noriega 11/24 Released w/o Limitations [employer]([facility]ata [facility] [place]) [facility]) OUTPATIENT [id number] TERE Ruelas 12/11 Released w/o Limitations [facility] [place]) [facility]) OUTPATIENT [id number] team RICHARD Castro 12/27 Released w/o Limitations [facility] [place]) [facility]) OUTPATIENT [id number] out of team PAVAN SAAVEDRA 01/14 Released w/o Limitations [facility]ata [facility] [place]) [facility]) OUTPATIENT [id number] PAVAN Noriega 01/21 Released w/o Limitations [facility] [place]) [facility](Ear /Nose/Thr oat Clinic) OUTPATIENT [id number] ORAL MUCOCEL MARCELLA MALONE 01/22 Released w/o Limitations [facility](E ar/Nose /Throat Clinic) [facility]) OUTPATIENT [id number] TERE Ruelas 01/28 Released w/o Limitations [facility](P [facility]ata [facility] [place]) [facility]) OUTPATIENT [id number] GIANCARLO Owens 02/06 Released w/o Limitations [facility] [place]) [facility]) OUTPATIENT [id number] TUAN Castro 02/14 Released w/o Limitations [employer](P erinata [facility]) [employer] DIRECT TO MTF FROM OTHER THAN ER OR APU [id number] TUAN LÓPEZ 02/17 DISCHARGED HOME [facility]/Thr oat Clinic) OUTPATIENT [id number] biopsy of lesion on lip MARCELLA CONTRERAS Talita 03/15 Released w/o Limitations [employer](E ar/Nose /Throat Clinic) [facility](Per inatal [place]) OUTPATIENT [id number] 6wks pp ASIF RENTERIA 04/05 Released w/o Limitations [employer](Red Pod) OUTPATIENT [id number] pain in feet when walking without shoes ELIEL HUNTLEY 04/25 Released w/o Limitations [facility](R ed Pod) [facility]) TELE CONSULT [id number] EZ MOREJON 08/08 [facility]) [facility] DIRECT TO MTF FROM OTHER THAN ER OR APU [id number] ELIEL AMES I 03/16 DISCHARGED HOME [facility] [address] [facility](Tricia amber, General Surgery) OUTPATIENT [id number] ELIEL AMES I 03/24 Released w/o Limitations [facility](S urgery, General Surgery ) 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 [place]) [facility]([place] OUTPATIENT [id number] C/O MILEY BISHOP 01/28 Released w/o Limitations [facility]([place]) [facility]IENT [id number] follow up for test results JOSE L UP 05/14 Released w/o Limitations [facility]([place]) [facility] [place] OUTPATIENT [id number] ANNUAL EYE EXAM GUERO OCHOA 06/02 [facility]ased w/o Limitations [facility] [facility] [place] [place] OUTPATIENT [id number] F/U HYPOTHY ROIDISM SEEN: [id number] JOSE L UP 07/13 Released w/o Limitations [facility] [place] [facility] [place] OUTPATIENT [id number] PAIN IN RT EAR JOSE L UP 07/31 Released w/o Limitations [facility]([place]) [facility] [place] OUT[facility]IENT [id number] F/U THYROID , SEEN 0 JOSE L UP 08/25 Released w/o Limitations [facility] [place]) [facility] [place]) OUTPATIENT [id number] RIGHT EAR PAIN AND CLOGGED BETSYALBERTOAM C 10/30 Released w/o Limitations [facility]) [facility] [place] TELE CONSULT [id number] lab results OLGA BUTLER 12/31 [facility] [place] [facility]([place]) [facility] [place] TELE CONSULT [id number] lab results OLGA BUTLER 02/22 [facility] [place] [facility]([place]) [facility] [place] OUTPATIENT [id number] lab work JOSE L UP 02/23 Released w/o Limitations [facility] [place] [facility]([place]) [facility] [place] TELE CONSULT [id number] Lab results CASTILLO LUKE 04/12 [facility]) [facility] August Team) TELE CONSULT [id number] Notes Entered by: Kristin MALAVE 28 Jun 2012 1058 ------- ------- ------- ------- -- Lab Request s EVA BUTTERFIELD 06/28 Referred for Appointment [address] [place] [address]([facility] [employer] Team) [address] [place] [address]([facility] Team) OUTPATIENT [id number] med refill - thyroid /levels checked EZ DOTSON 07/03 Released w/o Limitations [address] [place] [address]([facility] [employer] [facility]) [address] [place] [address]([facility]) OUTPATIENT [id number] lab results EZ DOTSON 09/05 Released w/o Limitations [address] [place] [address]([facility] [employer] r Team) [address] [place] [address]([facility]) OUTPATIENT [id number] follow up thyroid results RUBENS JACKSON 12/14 Released w/o Limitations [address] [place] [address]([facility] [employer] r Team) [address] [place] [address]([facility] Team) TELE CONSULT [id number] Notes Entered by: ZACH MARCH 14 Dec 2012 1325 ------- ------- ------- ------- -- GENERAL MESSAGE EVA BUTTERFIELD 12/14 Referred for Appointment [address] [place] [address]([facility] [employer] r Team) [address] [place] [address]([facility]) TELE CONSULT [id number] Notes Entered by: LENCHO URBINA 15 Jan 2013 09 ------- ------- ------- ------- -- Network Results - Audiolo gy 12/27 RUBENS JACKSON 01/[address] [place] [address](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 Papa Team) [facility] Papa Team) TELE CONSULT [id number] Notes Entered by: ANGE RUIZ 28 Aug 2013 0723 ------- ------- ------- ------- -- VVC AGS To [facility] - Labs Subject Test Result Request EDWIGE DILLARD 08/28 Referred for Appointment [facility] Papa Team) [facility] Papa Team) TELE CONSULT [id number] Notes Entered by: ANGE RUIZ 21 May 2014 1323 ------- ------- ------- ------- -- VVC AGS - General Message EDWIGE DILLARD 05/21 Referred for Appointment [facility] Papa Team) [facility] Papa Team) TELE CONSULT [id number] Notes Entered by: Chalo RAMSEY 29 May 2014 0749 ------- ------- ------- ------- -- No acute appt - symptom atic KACEYDAVE Connell 05/29 [facility] Papa Team) [facility] Papa Team) OUTPATIENT [id number] SORE THROAT, CAN'T SWALLOW , WHITE SPOTS BACK OF THROAT X 1 DAY RAN MERINO 06/24 Released w/o Limitations [facility]( [place] [facility] Team) [facility] Papa Team) TELE CONSULT [id number] Notes Entered by: POOL KING 01 Aug 2014 1409 ------- ------- ------- ------- -- [facility] Msg: Med refill request . POOL KING Lee 08/01 Referred for Appointment [facility] [place] Papa Team) [facility](I Papa Team) OUTPATIENT [id number] THYROID DAVE ERAZO 08/02 Released w/o Limitations [facility] [place] [facility] Team) [facility](I Papa Team) OUTPATIENT [id number] lump in right armpit x 2 months DAVE ERAZO 10/29 Released w/o Limitations [facility](F HI Papa [facility]) [facility](I Papa Team) TELE CONSULT [id number] Notes Entered by: Enma GALLAGHER 15 Nov 2014 1319 ------- ------- ------- ------- -- HA Cordero 11/15 [facility](F HI Papa Team) [facility] Operation al Medicine) OUTPATIENT [id number] ER f/up - right ankle pain/sw clareing DAVE ERAZO 05/19 Released w/o Limitations [facility](W arrior Operati onal Medicin e) [facility](Ort hopedic Clinic) OUTPATIENT [id number] CLOSED FRACTUR E OF FIBULA RIGHT BILL FERRERA 05/27 Released w/o Limitations [facility](O rthoped ic Clinic) [facility](Phy sical Therapy) OUTPATIENT [id number] ANKLE SPRAIN RIGHT COLE URBINA 06/12 Released w/o Limitations [facility](P hysical Therapy ) [facility](Phy sical Therapy) OUTPATIENT [id number] MAIRA GUAN 06/18 Released w/o Limitations [facility](P hysical Therapy ) [facility](Ort hopedic Clinic) OUTPATIENT [id number] right ankle fx BILL FERRERA 06/24 Released w/o Limitations [facility](O rthoped ic Clinic) [address] [place] [address](Phy sical Therapy) OUTPATIENT [id number] IDALMIS ORTEGA MARK 06/25 Released w/o Limitations [employer](P hysical Therapy ) [employer](Phy sical Therapy) OUTPATIENT [id number] IDALMIS ORTEGA MARK 06/30 Released w/o Limitations [employer](P hysical Therapy ) [employer](Phy sical Therapy) OUTPATIENT [id number] SHANNON IDALMIS FLORES 07/02 Released w/o Limitations [employer](P hysical Therapy ) [facility](Phy sical Therapy) OUTPATIENT [id number] NERI WHYTE 07/07 Released w/o Limitations [employer](P hysical Therapy ) [facility](Phy sical Therapy) OUTPATIENT [id number] NERI WHYTE 07/09 Released w/o Limitations [employer](P hysical Therapy ) [facility](Phy sical Therapy) OUTPATIENT [id number] MAIRA GUAN 07/14 Released w/o Limitations [employer](P hysical Therapy ) [facility](Phy sical Therapy) OUTPATIENT [id number] BLAISE CHAVEZ 07/16 Released w/o Limitations [employer](P hysical Therapy ) [facility](Phy sical Therapy) OUTPATIENT [id number] LARRY SANTIAGO 07/21 Released w/o Limitations [employer](P hysical Therapy ) [facility](Phy sical Therapy) OUTPATIENT [id number] LARRY SANTIAGO 07/23 Released w/o Limitations [employer](P hysical Therapy ) [facility](Phy sical Therapy) OUTPATIENT [id number] COLE URBINA 07/30 Released w/o Limitations [employer](P hysical Therapy ) [facility] ri[facility] Operation al Medicine) TELE CONSULT [id number] Notes Entered by: Sathish MONIQUE 30 Jul 2015 0830 ------- ------- ------- ------- -- VVC MSG: Med refill/ lab AMY, MARGIE Scarlett 07/30 [facility](W arrior Operati onal Medicin e) [address] [place] [address]([facility]) TELE CONSULT [id number] Notes Entered by: RASHEED DEJESUS 04 Aug 2015 0745 ------- ------- ------- ------- -- med refill STEVIE YANG 08/04 Other Not Elsewhere Classified [address] [place] [address](W arrior Operati onal Medicin e) [address] [place] [address]([facility]) OUTPATIENT [id number] f/y thyroid AMY, MARGIE A 08/18 Released w/o Limitations [address] [place] [address](W arrior Operati onal Medicin e) [address] [place] [address]([facility]) TELE CONSULT [id number] Notes Entered by: POOL KING 02 Sep 2015 0858 ------- ------- ------- ------- -- VVC Msg: Request for US results . POOL KING 09/02 Referred for Appointment [address] [place] [address](W ar[facility] Operati onal Medicin e) [address] [place] [address]([facility]) OUTPATIENT [id number] Routine gynecol ogic exam ZACH FLEMING 03/18 Released w/o Limitations [address] [place] [address]([facility]) [address] [place] [address]([facility]) TELE CONSULT [id number] Notes Entered by: Megan FLEMING 16 Apr 2016 1054 ------- ------- ------- ------- -- Radiolo gy Results ZACH FLEMING 04/[address] [place] [address]([facility]) [address] [place] [address]([facility]) TELE CONSULT [id number] Notes Entered by: DANTE NOWAK 21 Jul 2016 1253 ------- ------- ------- ------- -- VVC- Lab Request . MARIZA COLON 07/21 Referred for Appointment [facility](W arrior Operati onal Medicin e) [facility] Operation al Medicine) OUTPATIENT [id number] f/u thyroid MARGIE REYES A 08/03 Released w/o Limitations [facility](W arrior Operati onal Medicin e) [facility] Operation al Medicine) TELE CONSULT [id number] Notes Entered by: DANTE NOWAK 24 Jan 2017 0744 ------- ------- ------- ------- -- VVC- Med Refill. NURIS LAUREANO 01/24 [facility](W arrior Operati onal Medicin e) [facility](War ri[facility] Operation al Medicine) OUTPATIENT [id number] 6mo f/u. 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 POOL KING 08/09 Other Not Elsewhere Classified [facility](W arrior Operati onal Medicin e) [facility] ri[facility] Operation al Medicine) OUTPATIENT [id number] f/u thyroid , eval wart for removal KEVYN, BENIGNO L 08/09 Released w/o Limitations [facility](W arrior Operati onal Medicin e) [facility](Vas cular Procedure ) OUTPATIENT [id number] sclero ELIEL ARROYO 08/10 Released w/o Limitations [address] [place] [address](V ascular Procedu re) [address] [place] [address]([facility] Vinyl Installer Protocol) OUTPATIENT [id number] Notes Entered by: Rolly CORCORAN 15 Sep 2017 1233 ------- ------- ------- ------- -- MIRELLA Tom 09/15 Released w/o Limitations [address] [place] [address]([facility] Vinyl Installer Nubia henry) [address] [place] [address]([facility]) TELE CONSULT [id number] Notes Entered by: MALCOLM GILBERT 11 Nov 2017 1008 ------- ------- ------- ------- -- Appt Request MALCOLM GILBERT 11/11 Referred for Appointment [address] [place] [address]([facility]) [address] [place] [address]([facility]) OUTPATIENT [id number] Thalia lancaster between cycles ATYE JIMENEZ 11/24 Released w/o Limitations [address] [place] [address]([facility]) [address] [place] [address]([facility]) TELE CONSULT [id number] Notes Entered by: IRVING JIMENEZ 06 Dec 2017 1017 ------- ------- ------- ------- -- Pelvic US and lab results TAYE JIMENEZ 12/[address] [place] [address]([facility]) [address] [place] [address]([facility] Operation al Medicine) TELE CONSULT [id number] Notes Entered by: Chalo RAMSEY 14 Feb 2018 1246 ------- ------- ------- ------- -- Lab BENIGNO BAGLEY 02/[address] [place] [address]( arrior Operati onal Medicin e) [address] [place] [address]([facility]) OUTPATIENT [id number] F/U increas ed abnorma l uterine bleedin g TAYE JIMENEZ 06/14 Released w/o Limitations [facility]) [facility]) TELE CONSULT [id number] Notes Entered by: IRVING JIMENEZ 11 Jul 2018 1809 ------- ------- ------- ------- -- Pelvic US results TAYE JIMENEZ 07/11 [facility]) [facility]) OUTPATIENT [id number] 7 Abnorma l uterine and vaginal bleedin g, unspeci fied JOB XAVIER 08/11 Released w/o Limitations [facility]) [address] [place] [address]([facility]) OUTPATIENT [id number] 8 Yearly Thyroid check. BENIGNO BAGLEY 08/18 Released w/o Limitations [facility](W arrior Operati onal Medicin e) [facility]) OUTPATIENT [id number] 1 Ablatio n Consult GIGI SUGGS 11/02 Released w/o Limitations [facility]) [facility]) OUTPATIENT [id number] 8 string check per JOB Jeffrey 11/23 Released w/o Limitations [facility]) [facility]) OUTPATIENT [id number] 6 f/u per GIGI Weber 12/25 Released w/o Limitations [facility]) [facility]) TELE CONSULT [id number] 3 Notes Entered by: JAZMIN SOLIZ 25 Dec 2018 1601 ------- ------- ------- ------- -- GIGI Boston 12/25 [facility]) [address] [place] [address]([facility]) TELE CONSULT [id number] 2 Notes Entered by: RASHEED SUGGSC Y Erin 31 Jan 2019 1609 ------- ------- ------- ------- -- Referra l off base IFEANYIGIGI Megan 01/31 [facility]) [facility] Medicine Team E) TELE CONSULT [id number] Notes Entered by: Kristin BANERJEE 28 Mar 2019 0930 ------- ------- ------- ------- -- SYMPTOM ANGELA_MIRANDA ALAS 03/28 Referred for Appointment [facility]( amily Medicin e Team E) [facility] gene Medicine Team E) OUTPATIENT [id number] 3 left heel pain X 1 year but worse the last 1.5 weeks TOMAS ESPINOZA 04/02 Released w/o Limitations [facility]( amily Medicin e Team E) Procedures Combined list of: 1) Procedures from Department of Veterans Affairs facilities going back up to thelast 18 months, not all VA non-surgical procedures are included; 2) All procedures from the Department of Defense facilities. Procedure Procedure Type Code Date Perfomer Comments Sourc e No data available for this section [facility] OPHTHALMOLOGICAL SERVICES: MEDICAL EXAMINATION AND EVALUATION, WITH INITIATION OR CONTINUATION OF DIAGNOSTIC AND TREATMENT PROGRAM; INTERMEDIATE, ESTABLISHED PATIENT 2005 [facility] OPHTHALMOLOGICAL SERVICES: MEDICAL EXAMINATION AND EVALUATION, WITH INITIATION OR CONTINUATION OF DIAGNOSTIC AND TREATMENT PROGRAM; INTERMEDIATE, ESTABLISHED PATIENT 2005 DoD DETERMINATION OF REFRACTIVE STATE 2005 DoD SCREENING PAPANICOLAOU SMEAR; OBTAINING, PREPARING AND CONVEYANCE OF CERVICAL OR VAGINAL SMEAR TO LABORATORY 2003 DoD TELE ASSESS & MGT SRV PROV QUAL NONPHYS HLTH CARE PRO TO EST PAT,PARENT,GUARD NOT ORIG REL ASSESS & MGT SRV PROV W/IN PREV 7 DAYS NOR LEAD ASSESS & MGT SRV/PX W/IN NXT 24 HR/SOON APT;5-10 MIN MED DIS 2018 DoD REMOVAL OF INTRAUTERINE DEVICE (IUD) 2018 DoD ENDOMETRIAL SAMPLING (BIOPSY) WITH OR WITHOUT ENDOCERVICAL SAMPLING (BIOPSY), WITHOUT CERVICAL DILATION, ANY METHOD (SEPARATE PROCEDURE) 2018 DoD INFECTIOUS AGENT DETECTION BY NUCLEIC ACID (DNA OR RNA), MULTIPLE ORGANISMS; AMPLIFIED PROBE(S) TECHNIQUE 2017 DoD INFECTIOUS AGENT DETECTION BY NUCLEIC ACID (DNA OR RNA), MULTIPLE ORGANISMS; AMPLIFIED PROBE(S) TECHNIQUE 2017 DoD TELE ASSESS & MGT SRV PROV QUAL NONPHYS HLTH CARE PRO TO EST PAT,PARENT,GUARD NOT ORIG REL ASSESS & MGT SRV PROV W/IN PREV 7 DAYS NOR LEAD ASSESS & MGT SRV/PX W/IN NXT 24 HR/SOON APT;5-10 MIN MED DIS 2017 DoD DESTRUCTION (EG, LASER SURGERY, ELECTROSURGERY, CRYOSURGERY, CHEMOSURGERY, SURGICAL CURETTEMENT), OF BENIGN LESIONS OTHER THAN SKIN TAGS OR CUTANEOUS VASCULAR PROLIFERATIVE LESIONS; UP TO 14 LESIONS 2016 DoD DESTRUCTION (EG, LASER SURGERY, ELECTROSURGERY, CRYOSURGERY, CHEMOSURGERY, SURGICAL CURETTEMENT), OF BENIGN LESIONS OTHER THAN SKIN TAGS OR CUTANEOUS VASCULAR PROLIFERATIVE LESIONS; UP TO 14 LESIONS 2016 DoD INJECTION OF SCLEROSANT; MULTIPLE INCOMPETENT VEINS (OTHER THAN TELANGIECTASIA), SAME LEG 2016 DoD ONLINE ASSESS &MANAG SERV PROVIDE,A QUAL NONPHYS HCP TO AN ESTABLISHED PAT/GUARDIAN,NOT ORIGINAT FRM RELAT ASSESS &MANAG SERV PROVIDE W/IN THE PREV 7 DAYS,USE THE [employer] COMM NETWORK 2016 DoD ONLINE ASSESS &MANAG SERV PROVIDE,A QUAL NONPHYS HCP TO AN ESTABLISHED PAT/GUARDIAN,NOT ORIGINAT FRM RELAT ASSESS &MANAG SERV PROVIDE W/IN THE PREV 7 DAYS,USE THE [employer] COMM NETWORK 2016 DoD ONLINE ASSESS &MANAG SERV PROVIDE,A QUAL NONPHYS HCP TO AN ESTABLISHED PAT/GUARDIAN,NOT ORIGINAT FRM RELAT ASSESS &MANAG SERV PROVIDE W/IN THE PREV 7 DAYS,USE THE [employer] COMM NETWORK 2015 DoD ALL POTASSIUM HYDROXIDE (MARYELLEN) PREPARATIONS 2015 DoD ONLINE ASSESS &MANAG SERV PROVIDE,A QUAL NONPHYS HCP TO AN ESTABLISHED PAT/GUARDIAN,NOT ORIGINAT FRM RELAT ASSESS &MANAG SERV PROVIDE W/IN THE PREV 7 DAYS,USE THE [employer] COMM NETWORK 2014 DoD ONLINE ASSESS &MANAG SERV PROVIDE,A QUAL NONPHYS HCP TO AN ESTABLISHED PAT/GUARDIAN,NOT ORIGINAT FRM RELAT ASSESS &MANAG SERV PROVIDE W/IN THE PREV 7 DAYS,USE THE INTERNET/[employer] NETWORK 2014 [facility] PHYSICAL THERAPY RE-EVALUATION 2014 DoD THERAPEUTIC PROCEDURE,1 OR MORE AREAS,EACH 15 MINUTES;NEUROMUSCU LAR REEDUCATION OF MOVEMENT,BALANCE,C OORDINATION,KINEST HETIC SENSE,POSTURE,AND/ OR PROPRIOCEPTION FOR SITTING AND/OR STANDING ACTIVITIES 2014 DoD THERAPEUTIC PROCEDURE,1 OR MORE AREAS,EACH 15 MINUTES;NEUROMUSCU LAR REEDUCATION OF MOVEMENT,BALANCE,C OORDINATION,KINEST HETIC SENSE,POSTURE,AND/ OR PROPRIOCEPTION FOR SITTING AND/OR STANDING ACTIVITIES 2014 DoD THERAPEUTIC PROCEDURE, 1 OR MORE AREAS, EACH 15 MINUTES; THERAPEUTIC EXERCISES TO DEVELOP STRENGTH AND ENDURANCE, RANGE OF MOTION AND FLEXIBILITY 2014 DoD THERAPEUTIC PROCEDURE, 1 OR MORE AREAS, EACH 15 MINUTES; THERAPEUTIC EXERCISES TO DEVELOP STRENGTH AND ENDURANCE, RANGE OF MOTION AND FLEXIBILITY 2014 DoD THERAPEUTIC PROCEDURE, 1 OR MORE AREAS, EACH 15 MINUTES; THERAPEUTIC EXERCISES TO DEVELOP STRENGTH AND ENDURANCE, RANGE OF MOTION AND FLEXIBILITY 2014 DoD THERAPEUTIC PROCEDURE, 1 OR MORE AREAS, EACH 15 MINUTES; THERAPEUTIC EXERCISES TO DEVELOP STRENGTH AND ENDURANCE, RANGE OF MOTION AND FLEXIBILITY 2014 DoD THERAPEUTIC PROCEDURE, 1 OR MORE AREAS, EACH 15 MINUTES; THERAPEUTIC EXERCISES TO DEVELOP STRENGTH AND ENDURANCE, RANGE OF MOTION AND FLEXIBILITY 2014 DoD THERAPEUTIC PROCEDURE, 1 OR MORE AREAS, EACH 15 MINUTES; THERAPEUTIC EXERCISES TO DEVELOP STRENGTH AND ENDURANCE, RANGE OF MOTION AND FLEXIBILITY 2014 DoD THERAPEUTIC PROCEDURE, 1 OR MORE AREAS, EACH 15 MINUTES; THERAPEUTIC EXERCISES TO DEVELOP STRENGTH AND ENDURANCE, RANGE OF MOTION AND FLEXIBILITY 2014 DoD THERAPEUTIC PROCEDURE, 1 OR MORE AREAS, EACH 15 MINUTES; THERAPEUTIC EXERCISES TO DEVELOP STRENGTH AND ENDURANCE, RANGE OF MOTION AND FLEXIBILITY 2014 DoD THERAPEUTIC PROCEDURE, 1 OR MORE AREAS, EACH 15 MINUTES; THERAPEUTIC EXERCISES TO DEVELOP STRENGTH AND ENDURANCE, RANGE OF MOTION AND FLEXIBILITY 2014 [facility] WALKING BOOT,NON-PNEUMAT,W /W/O JOINTS,W/W/O INTERFACE MATERIAL,PREFABRIC ATED ITEM THAT HAS BEEN TRIMMED,BENT,MOLDE D,ASSEMBLED,OR OTHERWISE CUSTOMIZED TO FIT A SPECIFIC PATIENT,AN INDIV W EXPERTISE 2014 [facility] SCREENING PAPANICOLAOU SMEAR; OBTAINING, PREPARING AND CONVEYANCE OF CERVICAL OR VAGINAL SMEAR TO LABORATORY 2012 [facility] SCREENING PAPANICOLAOU SMEAR; OBTAINING, PREPARING AND CONVEYANCE OF CERVICAL OR VAGINAL SMEAR TO LABORATORY 2008 [facility] POSTOPERATIVE FOLLOW-UP VISIT, NORMALLY INCLUDED IN THE SURGICAL PACKAGE, INDICATE THAT EVALUATION & MANAGEMENT SERVICE WAS PERFORMED DURING A POSTOPERATIVE PERIOD REASON RELATED ORIGINAL PROCEDURE 2008 [facility] LAPAROSCOPIC APPENDECTOMY 2008 [facility] POSTOPERATIVE FOLLOW-UP VISIT, NORMALLY INCLUDED IN THE SURGICAL PACKAGE, INDICATE THAT EVALUATION & MANAGEMENT SERVICE WAS PERFORMED DURING A POSTOPERATIVE PERIOD REASON RELATED ORIGINAL PROCEDURE 2008 DoD POSTOPERATIVE FOLLOW-UP VISIT, NORMALLY INCLUDED IN THE SURGICAL PACKAGE, INDICATE THAT EVALUATION & MANAGEMENT SERVICE WAS PERFORMED DURING A POSTOPERATIVE PERIOD REASON RELATED ORIGINAL PROCEDURE 2008 [facility] LAPAROSCOPY, SURGICAL, APPENDECTOMY 2008 [facility] INJECTION, LEVOFLOXACIN, 250 MG 2008 [facility] SCREENING PAPANICOLAOU SMEAR; OBTAINING, PREPARING AND CONVEYANCE OF CERVICAL OR VAGINAL SMEAR TO LABORATORY 2007 [facility] SUBS CARE VISIT () [EXCLS:PATIENTS WHO ARE SEEN FOR A CONDITION UNREL TO / CARE (EG,AN UP RESPIR INFECT;PATIENTS SEEN FOR CONSULTATION ONLY,NOT FOR CONT CARE)] 2007 [facility] CARE VISIT () [EXCLS:PATIENTS WHO ARE SEEN FOR A CONDITION UNREL TO / CARE (EG,AN UP RESPIR INFECT;PATIENTS SEEN FOR CONSULTATION ONLY,NOT FOR CONT CARE)] 2007 [facility] CARE VISIT () [EXCLS:PATIENTS WHO ARE SEEN FOR A CONDITION UNREL TO / CARE (EG,AN UP RESPIR INFECT;PATIENTS SEEN FOR CONSULTATION ONLY,NOT FOR CONT CARE)] 2007 [facility] CARE VISIT () [EXCLS:PATIENTS WHO ARE SEEN FOR A CONDITION UNREL TO / CARE (EG,AN UP RESPIR INFECT;PATIENTS SEEN FOR CONSULTATION ONLY,NOT FOR CONT CARE)] 2007 [facility] SUBS CARE VISIT () [EXCLS:PATIENTS WHO ARE SEEN FOR A CONDITION UNREL TO / CARE (EG,AN UP RESPIR INFECT;PATIENTS SEEN FOR CONSULTATION ONLY,NOT FOR CONT CARE)] 2007 [facility] CARE VISIT () [EXCLS:PATIENTS WHO ARE SEEN FOR A CONDITION UNREL TO / CARE (EG,AN UP RESPIR INFECT;PATIENTS SEEN FOR CONSULTATION ONLY,NOT FOR CONT CARE)] 2007 [facility] SUBSEQ CARE VISIT () [EXCLS:PATIENTS WHO ARE SEEN FOR A CONDITION UNREL TO / CARE (EG,AN UP RESPIR INFECT;PATIENTS SEEN FOR CONSULTATION ONLY,NOT FOR CONT CARE)] 2007 [facility] SUBSEQ CARE VISIT () [EXCLS:PATIENTS WHO ARE SEEN FOR A CONDITION UNREL TO / CARE (EG,AN UP RESPIR INFECT;PATIENTS SEEN FOR CONSULTATION ONLY,NOT FOR CONT CARE)] 2007 [facility] TISSUE EXAMINATION BY MARYELLEN SLIDE OF SAMPLES FROM SKIN, HAIR, OR NAILS FOR FUNGI OR ECTOPARASITE OVA OR MITES (EG, SCABIES) 2007 [facility] SUBSEQ CARE VISIT () [EXCLS:PATIENTS WHO ARE SEEN FOR A CONDITION UNREL TO / CARE (EG,AN UP RESPIR INFECT;PATIENTS SEEN FOR CONSULTATION ONLY,NOT FOR CONT CARE)] 2007 [facility] SUBSEQ CARE VISIT () [EXCLS:PATIENTS WHO ARE SEEN FOR A CONDITION UNREL TO / CARE (EG,AN UP RESPIR INFECT;PATIENTS SEEN FOR CONSULTATION ONLY,NOT FOR CONT CARE)] 2006 [facility] SUBSEQ CARE VISIT () [EXCLS:PATIENTS WHO ARE SEEN FOR A CONDITION UNREL TO / CARE (EG,AN UP RESPIR INFECT;PATIENTS SEEN FOR CONSULTATION ONLY,NOT FOR CONT CARE)] 2006 [facility] URINE TEST, BY VISUAL COLOR COMPARISON METHODS 2006 [facility] INITIAL CARE VISIT (REPORT AT 1ST ENCOUN W HEALTH CURING OVEN TENDER PROVIDING OBSTETRIC CARE. REPORT ALSO DATE OF VISIT &,IN A SEPARATE FIELD,THE DATE OF THE LAST MENSTRUAL PERIOD) 2006 [facility] SCREENING PAPANICOLAOU SMEAR; OBTAINING, PREPARING AND CONVEYANCE OF CERVICAL OR VAGINAL SMEAR TO LABORATORY 2006 [facility] PRESCRIPTION OF OPTICAL AND PHYSICAL CHARACTERISTICS OF AND FITTING OF CONTACT LENS, WITH MEDICAL SUPERVISION OF ADAPTATION; CORNEAL LENS, BOTH EYES, EXCEPT FOR APHAKIA 2006 [facility] INFLUENZA VIRUS VACCINE, TRIVALENT, LIVE (LAIV3), FOR INTRANASAL USE 2009 [facility] OPHTHALMOLOGICAL SERVICES: MEDICAL EXAMINATION AND EVALUATION WITH INITIATION OF DIAGNOSTIC AND TREATMENT PROGRAM; COMPREHENSIVE, NEW PATIENT, 1 OR MORE VISITS 2009 [facility] IMMUNIZATION ADMINISTRATION BY INTRANASAL OR ORAL ROUTE; 1 VACCINE (SINGLE OR COMBINATION VACCINE/TOXOID) 2009 [facility] Non-Physician Phone Call To Patient/Provider Brief (5-10min) Non-Physician Phone Call To Patient/Provider Brief (5-10min) [id number] 2018 MIRANDA LEO [facility] Endometrial Biopsy By Suction Endometrial Biopsy By Suction [id number] 2018 TESSA CLEMENT [facility] Intrauterine Device (IUD) Insertion [facility] Intrauterine Device (IUD) Insertion 99872 2018 TESSA CLEMENT Vaginal MARYELLEN Prep Vaginal MARYELLEN Prep 41356 2017 TAYE JIMENEZ Vaginal Wet Mount Smear Vaginal Wet [place] Smear 50526 2017 TAYE JIMENEZ Screening papanicolaou smear; obtaining, preparing and conveyance of cervical or vaginal smear to laboratory 2017 TAYE JIMENEZ All pota ium hydroxide (maryellen) preparations 2017 TAYE JIMENEZ Non-Physician Phone Call To Patient/Provider Brief (5-10min) Non-Physician Phone Call To Patient/Provider Brief (5-10min) [id number] 2017 MALCOLM GILBERT Destruction Of Benign Lesion By Cryosurgery Destruction Of Benign Lesion By Cryosurgery 49473 2016 MIRELLA ESTRELLA Destruction Of Flat Warts By Cryosurgery Up To 14 Lesions Destruction Of Flat Warts By Cryosurgery Up To 14 Lesions 96946 2016 LAZARUS REA Sclerosing Multiple Veins By Injection - One Leg 2016 ELIEL ARROYO Procedure: The surgical consent is obtained for sclero-therapy injection for spider and reticular veins of the left lower extremity. The risks and complications are discussed including infection, bleeding, cellulitis, skin necrosis and ulceration, darkening of the skin, numbness of the skin, as well the recurrence of spider varicose veins among others, understand and is willing to proceed. Left lower extremity prepped with alcohol. With the use of vein light we were able to identify reticular veins that were injected with total 3 ml sotradechol (0.25 % concentration 1 ml with 9ml saline). Multiple injections were done. The patient did well and no complaints of pain or burning sensation. Post-op instructions provided. Patient is to call the clinic with questions or concerns . Surgeon : Dr. Eliel Arroyo [facility] Internet Med Svc Qual Nonphys Healthcare Prof Estab Patient [facility] S[facility] Qual [facility] Healthcare Prof Estab Patient [id number] 2016 POOL KING [facility] Internet Med Svc Qual [facility] Healthcare Prof Estab Patient Internet Med Svc Qual Nonphys Healthcare Prof Estab Patient [id number] 2016 POOL KING [facility] Internet Med Svc Qual Nonphys Healthcare Prof Estab Patient Internet Med Svc Qual Nonphys Healthcare Prof Estab Patient [id number] 2015 MARIZA COLON [facility] All pota ium hydroxide (maryellen) preparations 2015 ZACH FLEMING [facility] Internet Med Svc Qual Nonphys Healthcare Prof Estab Patient Internet Med Svc Qual Nonphys Healthcare Prof Estab Patient [id number] 2014 POOL KING [facility] Internet Med Svc Qual Nonphys Healthcare Prof Estab Patient Internet Med Svc Qual Nonphys Healthcare Prof Estab Patient [id number] 2014 STEVIE YANG [facility] Physical Medicine Physical Therapy Re-Evaluation Physical Medicine Physical Therapy Re-Evaluation [id number] 2014 COLE URBINA [facility] Physical Therapy: ___ Se ion Segments, 15 Minutes Each Physical Therapy: ___ Session Segments, 15 Minutes Each [id number] 2014 LARRY SANTIAGO x 25 min [facility] Physical Therapy Neuromuscular Re-education Physical Therapy Neuromuscular Re-education [id number] 2014 LARRY SANTIAGO x 10 min [facility] Physical Therapy Neuromuscular Re-education Physical Therapy Neuromuscular Re-education 86819 2014 LARRY SANTIAGO x 10 min [facility] Physical Therapy: ___ Se ion Segments, 15 Minutes Each Physical Therapy: ___ Session Segments, 15 Minutes Each [id number] 2014 LARRY SANTIAGO x 25 min [facility] Physical Therapy: ___ Se ion Segments, 15 Minutes Each Physical Therapy: ___ Session Segments, 15 Minutes Each [id number] 2014 BLAISE CHAVEZ 30 min [facility] Physical Therapy: ___ Se ion Segments, 15 Minutes Each Physical Therapy: ___ Session Segments, 15 Minutes Each [id number] 2014 MAIRA GUAN [facility] Physical Therapy: ___ Se ion Segments, 15 Minutes Each Physical Therapy: ___ Session Segments, 15 Minutes Each [id number] 2014 NERI WHYTE Service time x40min [facility] Physical Therapy: ___ Se ion Segments, 15 Minutes Each Physical Therapy: ___ Session Segments, 15 Minutes Each [id number] 2014 NERI WHYTE Service time x30min [facility] Physical Therapy: ___ Se ion Segments, 15 Minutes Each Physical Therapy: ___ Session Segments, 15 Minutes Each 11406 2014 IDALMIS ORTEGA [facility] Physical Therapy: ___ Se ion Segments, 15 Minutes Each Physical Therapy: ___ Session Segments, 15 Minutes Each [id number] 2014 IDALMIS ORTEGA [facility] Physical Therapy: ___ Se ion Segments, 15 Minutes Each Physical Therapy: ___ Session Segments, 15 Minutes Each [id number] 2014 IDALMIS ORTEGA [facility] Physical Therapy: ___ Se ion Segments, 15 Minutes Each Physical Therapy: ___ Session Segments, 15 Minutes Each [id number] 2014 MAIRA GUAN Exercises A isted Exercises For ROM Exercises Assisted Exercises For ROM 67008 2014 COLE URBINA [facility] Physical Medicine Physical Therapy Evaluation Physical Medicine Physical Therapy Evaluation 32000 2014 COLE URBINA Screening papanicolaou smear; obtaining, preparing and conveyance of cervical or vaginal smear to laboratory 2012 BLANK BRASHER Inf Agt Antig Det Nucleic Acid Dir Probe Human Papillomavir Inf Agt Antig Det Nucleic Acid Dir Probe Human Papillomavir 48021 2012 BLANK BRASHER V [facility] Immunization Admin By Intranasal / Oral Route One Vaccine Immunization Admin By Intranasal / Oral Route One Vaccine 80006 2009 JOSE L UP Influenza Virus Vaccine Live Intranasal 2009 JOSE L UP Ophthalmological New Patient Start Comprehensive Care Ophthalmological New Patient Start Comprehensive Care [id number] 2009 GUERO OCHOA Prescription & Fitting Bilateral Corneal Lenses (Not Aphakia Prescription & Fitting Bilateral Corneal Lenses (Not Aphakia 47922 2009 GUERO OCHOA Determination Of Refractive State Determination Of Refractive State 02142 2009 GUERO OCHOA Immunization Admin By Intranasal / Oral Route One Vaccine Immunization Admin By Intranasal / Oral Route One Vaccine 41853 2009 CHANDRA MARTÍNEZ Influenza Virus Vaccine Pandemic Formulation Influenza Virus Vaccine Pandemic Formulation 53637 2009 CHANDRA MARTÍNEZ Screening papanicolaou smear; obtaining, preparing and conveyance of cervical or vaginal smear to laboratory [address]Supervised Specimen Handling / Transfer: Office To Lab -Supervised Specimen Handling / Transfer: Office To Lab 09868 2008 MANI ESPINAL Postoperative Visit, Without Charge Postoperative Visit, Without Charge 97813 2008 ELIEL AMES I [facility] Cervical Pap Smear Cervical Pap Smear 39895 2007 ASIF RENTERIA [facility] OB Services Antepartum Care Only Subsequent Single Visit OB Services Antepartum Care Only Subsequent Single Visit [id number] 2007 TUAN LÓPEZ OB Services Antepartum Care Only Subsequent Single Visit OB Services Antepartum Care Only Subsequent Single Visit 0502F 2007 GIANCARLO ROCK [facility] Screening papanicolaou smear; obtaining, preparing and conveyance of cervical or vaginal smear to laboratory 2006 RADHA HECK [facility] Prescription & Fitting Bilateral Corneal Lenses (Not Aphakia Prescription & Fitting Bilateral Corneal Lenses (Not Aphakia 30679 2006 BHAVNA SUAREZ Visual Faust Test Limited Examination Visual Faust Test Limited Examination 28011 2006 BHAVNA SUAREZ Determination Of Refractive State Determination Of Refractive State 50381 2006 BHAVNA SUAREZ Ophthalmological New Patient Start Comprehensive Care Ophthalmological New Patient Start Comprehensive Care [id number] 2006 BHAVNA SUAREZ Ophthalmological Prior Patient Start Intermediate Level Care Ophthalmological Prior Patient Start Intermediate Level Care [id number] 2005 BILL SHRESTHA Ophthalmological Prior Patient Start Intermediate Level Care Ophthalmological Prior Patient Start Intermediate Level Care [id number] 2005 BILL SHRESTHA Determination Of Refractive State Determination Of Refractive State 77119 2005 BILL SHRESTHA Ophthalmological New Patient Start Comprehensive Care Ophthalmological New Patient Start Comprehensive Care [id number] 2005 BILL SHRESTHA Closure Of The Lacrimal Punctum By Plug (Each) Closure Of The Lacrimal Punctum By Plug (Each) 58328 2005 BILL SHRESTHA [facility] Social History Combined list of available smoking, tobacco, and other social history from [facility] and [facility] facilities. Social History Type Response Date Comment Sourc e Sex Representation Female (finding) 06/27/2020 Unknown Organization Sexual Orientation Ambula tory Pharmacy Gender identity Ambulator y Pharmacy This section is an empty social history section. DoD Assessment and Plan Combined list of future care activities from Department of Defense and Veterans Affairs facilities (e.g., assessment and plan notes, appointments, orders, and referrals). Additional future care activities may be listed in the Plan of Care section. Result Assessment and Plan Date Source Assessment and Plan No data available for this section 02/04/2025 Ambulatory Pharmacy Functional Status Combined list of recent functional and cognitive assessments recorded at [facility] Functional Collin Measurement (FIM) Scale: 1 = Total Assistance (Subject = 0% +), 2 = Maximal Assistance (Subject = 25% +), 3 = Moderate Assistance (Subject = 50% +), 4 = Minimal Assistance (Subject = 75% +), 5 = Supervision, 6 = Modified Collin (Device), 7 = Complete Collin (Timely, Safely). Assessment Date/Time Source Assessment Type Assessment Skill Assessment Score Assessment Details No data available for this section
[2025-02-04 14:08] LABS: Alanine Aminotransferase 16 U/L (6-35); Alkaline Phosphatase 49 U/L (38-126); Aspartate Amino Transferase 28 U/L (14-36); Bilirubin,Total 0.5 mg/dL (0.2-1.3)
== END 2025-02-04 09:11 | disposition home or self-care (01) ==
LOC: ANHGOSHLAB 09:11
PROVIDERS: PCP Family Medicine; Visit Provider Student in an Organized Health Care Education/Training Program
DX: R74.01 Elevation of levels of liver transaminase levels (principal)
CPT/HCPCS: 36415; 80076

== ENCOUNTER 2025-05-08 08:34 | Outpatient (CLI) | payer OTHER, SELFPAY ==
--- OUTSIDE RECORDS SUMMARY | 2025-05-08 08:39 | XMS_ITS | Referral Summary ---
Author Organization 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 before breakfast 2 Active UNABLE TO FINDIndications [...] P M CDT Height 160 cm (5' 2.99) 06/08/2024 2:33 PM CDT Body Mass Index 28.36 06/08/2024 2:33 PM CDT Plan of Treatment Not on file Medical Devices Implanted Type Area German Instructor Device Identifier Shelf Expiration Date Model / Serial / Lot [employer] 13.4cm High Strength Cohesive Plus Smooth P5.3cm High Projection [id number] - [id number] - [id number] Implanted:Qty: 1 on 02/23/2023 by Andrzej Miles MD at [facility] Breast Left: Breast [employer] 11/05/2027 68904-620 HP / [id number] / Description:Implant pause do ne prior to opening all implants [employer] 13.4cm High Strength Cohesive Plus Smooth P5.3cm High Projection [id number] - [id number] - [id number] Implanted:Qty: 1 on 02/23/2023 by Andrzej Miles MD at [facility] Breast Right: Breast [employer] 11/14/2027 37014-936 HP / [id number] / [employer] Magseed 18ga 7cm Marker Breast Biopsy [id number] - [id number] Implanted:Qty: 1 on 09/27/2022 at [facility] Right: Breast [employer] [id number] 06/16/2026 [id number] / / [id number] [employer] Alloderm Select 30q43aw Allograft Regenerative Thk.4-2.4mm Thick [id number] - [id number] Implanted:Qty: 1 on 11/18/2022 by Andrzej Miles MD at [facility] Left: Breast [employer] 02/14/2024 [id number] / / [id number] Description:Implant pause do ne prior to opening all implants [employer] Alloderm Select 23s43ou Allograft Regenerative Thk.4-2.4mm Thick [id number] - [id number] Implanted:Qty: 1 on 11/18/2022 by Andrzej Miles MD at [facility] Right: Breast [employer] 02/14/2024 [id number] / / [id number] Explanted Type Area German Instructor Device Identifier Shelf Expiration Date Model / Serial / Lot [employer] Implant Mammary Natrelle Te Smooth 979w-Uu-80-T With Fourte 755h-Ue-16-T - [id number] - [id number] Implanted:Qty: 1 on 11/18/2022 by Andrzej Miles MD at [facility] Explanted:Qty: 1 on 02/23/2023 by Andrzej Miles MD at [facility] Left: Breast [employer] 01/12/2027 133S-MX-13 -T / [id number] / [id number] Description:Filled with 100m l saline [employer] Implant Mammary Natrelle Te Smooth 053l-Zb-43-T With Fourte 282p-Nm-09-T - [id number] - [id number] Implanted:Qty: 1 on 11/18/2022 by Andrzej Miles MD at [facility] Explanted:Qty: 1 on 02/23/2023 at [facility] Right: Breast [employer] 02/19/2027 133S-MX-13 -T / [id number] / Description:Filled with 100m l saline Upon explantation, lot # [id number] noted Insurance [facility] H[facility]/PPO Address: [facility] [address] [place], [place] [id number] [place] [address] [facility] H[facility]/PPO Address: [address] [address] [place] [address] [facility] Care Teams Chip Mixer Relationship Specialty Start Date End Date Ori Lucas MD [address] [place] [address] PCP - General Family Medicine 08/24/22 Rajan Adams MD [address] [place] [address] Referring Physician Obstetrics and Gynecology 07/14/22 Rajan Adams MD [address] [place] [address] Referring Physician Obstetrics and Gynecology 08/24/22
--- OUTSIDE RECORDS SUMMARY | 2025-05-08 08:39 | XMS_ITS | Continuity of Care Document ---
Author Name [facility] Organization [facility] Care Team Providers Care Yarn Carrier Name Role Phone [facility] Unavailable Unavailable Problems Combined list of problems [...] the plan. DoD CONSTIPATION Inactive Condition Naaa gesolo pt to incorporate fiber into her diet and to drink 2-3 liters of water per day. Continue colace prn. Also may take milk of magnesia or mineral oil prn. [facility] NORMAL ROUTINE HISTORY AND PHYSICAL - Inactive [...] 41 weeks if not delivered. GBS (+) [facility] NORMAL CHECKUP (6 - 42 Wk) Inactive [...] AGREES WITH THE TREATMENT AND EVALUATION PLAN. [facility] ORAL MUCOCELE Inactive Condition DoD bleeding during Inactive Condition Cervical ectropion likely source of bleeding. Yeast infx may have contributed. Rhogam given tonight, though unlikely that bleeding originated from placental origin. Do not suspect abruption at this time. DoD CANDIDIASIS VAGINAL Inactive Condition Terconazole [address] [facility] NORMAL Inactive Condition Gbs done today, f/u 1-2 wks DoD NORMAL CHECKUP - SECOND TRIMESTER Inactive Condition F/U 4wks. Reviewed precautions. Will refer to PCM for evaluation of lip on cyst. DoD Supervision Of Normal Inactive Condition exam WNL. f /u one week with routine visit. cvx C/T/H today. DoD Inactive Condition 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 visit for: follow-up exam Inactive Condition DoD [...] SUBCUT, NINO NORDISK, .75 ml SYRINGE Active [id number] 2023 3 Pharmac y Data Transac tion Service Facilit y Allergies, Adverse Reactions, Alerts Combined list of allergies from Department of Defense and Veterans Affairs facilities. It does not include entries that were removed or entered in error. Substance Category Reaction Severity Reaction type Status Date Reported Comments Source Penicillins Drug allergy (disorder) Urticaria active 02/18/2005 Clay [facility]- [facility] Immunizations Combined list of available immunizations from the Department of Defense and Veterans Affairs facilities. Immunization Series Date Given Administered By Site Reaction Lot Number CVX Code Drug Veneer Trimmer Status Comments Source influenza, seasonal, injectable-pf 2015 zzTereza ht Arm [id number] Seqirus complet ed influenza , seasonal, injectabl e-pf 09/29/16 Given Ambulat ory Pharmac y Influenza, seasonal, injectable, preservative free 1 2015 Unknown, Provider [id number] Seqirus (SEQ) complet ed Influenza , seasonal, injectabl e, preservat triston free DoD Td (adult)-PF 2011 zzTereza Arm [id number] 113 sanofi pasteur complet ed Td (adult)-P F 06/12/12 Given Ambulat ory Pharmac y tetanus and diphtheria toxoids, adsorbed, preservative free, for adult use (5 Lf of tetanus toxoid and 2 Lf of diphtheria toxoid) 2 2011 Unknown, Provider [id number] 113 Sanofi Pasteur ([facility]) complet ed tetanus and diphtheri a toxoids, adsorbed, preservat triston free, for adult use (5 Lf of tetanus toxoid and 2 Lf of diphtheri a toxoid) DoD influenza virus vaccine, live 2009 [id number] XOJET Inc comple t ed influenza virus vaccine, live 08/25/10 Given Ambulat ory Pharmac y influenza virus vaccine, live, attenuated, for intranasal use 1 2009 CASTILLO LUKE [id number] 111 [employer], Press. (MED) complet ed influenza virus vaccine, live, attenuate d, for intranasa l use [facility] influenza virus vaccine,split [facility] [id number] 15 GlaxoSmithKli ne complet ed influenza virus vaccine,s plit 09/05/07 Given Ambulat ory Pharmac y influenza virus vaccine, split virus (incl. purified surface antigen)-reti red CODE 1 2006 Unknown, Provider [id number] 15 [employer] (SKB) complet ed influenza virus vaccine, split virus (incl. purified surface antigen)- retired CODE [facility] tuberculin purified protein derivative [facility] [id number] 96 Unknown complet ed Patient Tolerance : Negative Ambulat ory Pharmac y tuberculin skin test; purified protein derivative solution, intradermal 1 2006 Unknown, Provider [id number] 96 Other (OTH) complet ed tuberculi n skin test; purified protein derivativ e solution, intraderm al DoD tetanus, diphtheria, acellular pertu is 2005 [facility] [id number] 115 sanofi pasteur complet ed tetanus, diphtheri a, acellular pertussis 07/21/06 Given Ambulat ory Pharmac y tetanus toxoid, reduced diphtheria toxoid, and acellular pertu is vaccine, adsorbed 1 2005 Unknown, Provider [id number] 115 Sanofi Pasteur ([facility]) complet ed tetanus toxoid, reduced diphtheri a toxoid, and acellular pertussis vaccine, adsorbed DoD influenza virus vaccine, whole virus 2004 zzLef t Arm [id number] 16 sanofi pasteur complet ed influenza virus vaccine, whole virus 09/10/05 Given Ambulat ory Pharmac y influenza virus vaccine, whole virus 1 2004 Unknown, Provider [id number] 16 Sanofi Pasteur ([facility]) complet ed influenza virus vaccine, whole virus DoD tuberculin purified protein derivative 2003 zzLef t Arm [id number] 96 sanofi pasteur complet ed Patient Tolerance : Negative Ambulat ory Pharmac y tuberculin skin test; purified protein derivative solution, intradermal 1 2003 Unknown, Provider [id number] 96 Sanofi Pasteur ([facility]) complet ed tuberculi [...] ADM Date DC Date Status Disposition Source [facility] Medicine Clinic) OUTPATIENT [id number] TABITHA Goetz 01/14 Released w/o Limitations Clay [address] [facility](F light Medicin e Clinic) Clay [facility] Medicine Clinic) OUTPATIENT [id number] TABITHA REYES 02/18 Released w/o Limitations Clay [address] [facility] light Medicin e Clinic) Clay [facility](Opt ometry Clinic) OUTPATIENT [id number] eye examine BILL SHRESTHA 03/03 Released w/o Limitations Clay [address] [facility](O ptometr y Clinic) Clay [facility](Opt ometry Clinic) OUTPATIENT [id number] f/u BILL SHRESTHA 03/09 Released w/o Limitations Clay [facility](O ptometr y Clinic) Clay [address]NA[address] [facility](Opt ometry Clinic) OUTPATIENT [id number] f/u BILL SHRESTHA 03/24 Released w/o Limitations Williamson [address] Medical [facility](O ptometr y Clinic) [facility] Medical [facility](Whi te Pod) OUTPATIENT [id number] Leg hurts when I begin to walk MABEL MARYLINCHON Delacruz 03/15 Released w/o Limitations [facility] Group(W janes Pod) [facility] Medical [facility](Opt ometry ([facility]) ) OUTPATIENT [id number] EYE EXAM ADAM MORRIS 04/03 Released w/o Limitations [facility] Medical [facility](O ptometr y ([facility] [address] [place] [address]([facility]) OUTPATIENT [id number] RADHA PRESLEY 05/08 Released w/o Limitations [facility] Medical [facility]) [address] [place] [address]([facility]) OUTPATIENT [id number] AYUSH LEDESMA 07/19 Released w/o Limitations [facility] Medical [facility](P erinata l [place]) [address] [place] [address]([facility]) OUTPATIENT [id number] TERE Oleary 07/28 Released w/o Limitations [facility] Medical [facility](P erinata l [place]) [address] [place] [address]([facility]) OUTPATIENT [id number] TERE Ruelas 08/24 Released w/o Limitations [facility] Medical [facility](P erinata l [place]) [address] [place] [address]([facility]) OUTPATIENT [id number] bto/due to resched ule of SARAH Franz 09/22 Released w/o Limitations [facility] Medical [facility](P erinata l [place]) [facility] Medical [facility]) OUTPATIENT [id number] JOCELYN Yanez 10/27 Released w/o Limitations [facility] Medical [facility](P erinata l [place]) [address] [place] [address]([facility]) OUTPATIENT [id number] Vaginal bleedin JEANNA Hough 11/24 Released w/o Limitations [facility] Medical [facility]) [address] [place] [address]([facility]) OUTPATIENT [id number] PAVAN NoriegaY 11/24 Released w/o Limitations [employer] [employer] [facility] l Center) [employer]([facility]) OUTPATIENT [id number] TERE Ruelas 12/11 Released w/o Limitations [employer]([facility]ata [facility] [place]) [facility]) OUTPATIENT [id number] raymond. team RICHARD Castro 12/27 Released w/o Limitations [employer]([facility]ata [facility] [place]) [facility]) OUTPATIENT [id number] out of team KERIPAVANY 01/14 Released w/o Limitations [employer]([facility]ata [facility] [place]) [facility]) OUTPATIENT [id number] raymond PARRPAVAN ConnellY 01/21 Released w/o Limitations [employer]([facility] [place]) [facility](Ear /Nose/Thr oat Clinic) OUTPATIENT [id number] ORAL MUCOCEL MARCELLA MALONE 01/22 Released w/o Limitations [employer](E ar/Nose /Throat Clinic) [facility]) OUTPATIENT [id number] TERE Ruelas 01/28 Released w/o Limitations [employer]([facility] [place]) [facility]) OUTPATIENT [id number] GIANCARLO Owens 02/06 Released w/o Limitations [employer]([facility]ata [facility] [place]) [facility]) OUTPATIENT [id number] TUAN Castro 02/14 Released w/o Limitations [employer]([facility] [place]) [facility] DIRECT TO [facility] FROM OTHER THAN ER OR U [id number] TUAN BILL 02/17 DISCHARGED HOME [facility](Ear /Nose/Thr oat Clinic) OUTPATIENT [id number] biopsy of lesion on lip MARCELLA CONTRERAS 03/15 Released w/o Limitations [employer](E ar/Nose /Throat Clinic) [facility](Per inatal [place]) OUTPATIENT [id number] 6wks pp ASIF RENTERIA 04/05 Released w/o Limitations [facility](P [facility]ata [facility] [place]) [facility] Medical [facility](Red Pod) OUTPATIENT [id number] pain in feet when walking without shoes HUNTLEYAMI MASSEYMUKESH Sanon 04/25 Released w/o Limitations [facility] Medical [facility](R ed Pod) [facility] Medical [facility]) TELE CONSULT [id number] EZ MOREJON 08/08 [facility] Medical [facility]) [facility] DIRECT TO [facility] FROM OTHER THAN ER OR APU [id number] ELIEL AMES I 03/16 DISCHARGED HOME [address] [place] [address] Medical [facility](Tricia amber, General Surgery) OUTPATIENT [id number] ELIEL AMES I 03/24 Released w/o Limitations [facility] Medical [facility](S urgery, General Surgery ) [facility] Medical [facility]) OUTPATIENT [id number] MANI TREVIÑO 03/24 Released w/o Limitations [facility] Medical [facility]) [facility]([place]gy [place]) OUTPATIENT [id number] H1N1 VACCINE CHANDRA MARTÍNEZ 10/30 Released w/o Limitations [facility](Instructional Design Manager ecology [place]) [facility]([place]) OUTPATIENT [id number] C/O MILEY BISHOP 01/28 Released w/o Limitations [facility](Instructional Design Manager ecology [place]) [facility]([place]) OUTPATIENT [id number] follow up for test results JOSE L UP 05/14 Released w/o Limitations [facility](Instructional Design [place]) [facility](Optomet ry Clinic [place]) OUTPATIENT [id number] ANNUAL EYE EXAM GUERO OCHOA 06/02 Released w/o Limitations [facility](Opt ometry Clinic [place]) [facility]([place]) OUTPATIENT [id number] F/U HYPOTHY ROIDISM SEEN: [id number] JOSE L UP 07/13 Released w/o Limitations [facility](Instructional Design Manager ecology [place]) [facility]([place]) OUTPATIENT [id number] PAIN IN RT EAR JOSE L UP 07/31 Released w/o Limitations [facility](Instructional [place]) [facility]([place]gy [place]) OUTPATIENT [id number] F/U THYROID , SEEN 0 JOSE L UP 08/25 Released w/o Limitations [facility](Instructional Design [place]) [facility]([place]gy [place]) OUTPATIENT [id number] RIGHT EAR PAIN AND CLOGGED BETSYROYCE C 10/30 Released w/o Limitations [facility](Instructional Design [place]) [facility]([place]gy [place]) TELE CONSULT [id number] lab results OLGA BUTLER 12/31 [facility](Instructional Design [place]) [facility]([place]gy [place]) TELE CONSULT [id number] lab results OLGA BUTLERIFEANYI 02/22 [facility](Instructional Design Manager [place]) [facility]([place]gy [place]) OUTPATIENT [id number] lab work JOSE L UP 02/23 Released w/o Limitations [facility](Instructional Design Manager [place]) [facility]([place]gy [place]) TELE CONSULT [id number] Lab results RANDYJONATHAN RaeARA 04/12 [facility](Instructional Design Manager [place]) [facility] Group([facility] August Team) TELE CONSULT [id number] Notes Entered by: Kristin MALAVE 28 Jun 2012 1058 ------- ------- ------- ------- -- Lab Request EVA Hwang 06/28 Referred for Appointment [facility] Team) [facility] August Team) OUTPATIENT [id number] med refill - thyroid /levels checked EZ DOTSON 07/03 Released w/o Limitations [address] [place] [address]([facility] r Team) [address] [place] [address]([facility] Team) OUTPATIENT [id number] lab results EZ DOTSON 09/05 Released w/o Limitations [address] [place] [address]([facility] r Team) [address] [place] [address]([facility] Team) OUTPATIENT [id number] follow up thyroid results RUBENS JACKSON 12/14 Released w/o Limitations [address] [place] [address]([facility] r Team) [address] [place] [address]([facility] Team) TELE CONSULT [id number] Notes Entered by: ZACH MARCH 14 Dec 2012 1325 ------- ------- ------- ------- -- GENERAL MESSAGE EVA BUTTERFIELD 12/14 Referred for Appointment [address] [place] [address]([facility] r Team) [address] [place] [address]([facility] Team) TELE CONSULT [id number] Notes Entered by: LENCHO URBINA 15 Jan 2013 0922 ------- ------- ------- ------- -- Network Results - Audiolo gy 12/27 RUBENS JACKSON 01/[address] [place] [address]([facility] r Team) [address] [place] [address](Ear /Nose/Thr oat Clinic) OUTPATIENT [id number] 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 Papa Team) OUTPATIENT [id number] rt wrist,e lbow and shoulde r pain x 1 month DAVE ERAZO 05/25 Released w/o Limitations [facility] Medical [facility] Papa Team) [facility] Medical [facility] Papa Team) TELE CONSULT [id number] Notes Entered by: ANGE RUIZ 28 Aug 2013 0723 ------- ------- ------- ------- -- VVC AGS To [facility] - Labs Subject Test Result Request PO DILLARDGILA Foster 08/28 Referred for Appointment [facility] Group(F HI Papa Team) [facility] Medical [facility](I Papa Team) TELE CONSULT [id number] Notes Entered by: ANGE RUIZ 21 May 2014 1323 ------- ------- ------- ------- -- VVC AGS - General Message EDWIGE DILLARD Kristin 05/21 Referred for Appointment [facility] Group(F HI Papa Team) [facility] Medical [facility](I Papa Team) TELE CONSULT [id number] Notes Entered by: Chalo RAMSEY 29 May 2014 0749 ------- ------- ------- ------- -- No acute appt - symptom atic DAVE ERAZO 05/29 [facility] Group(F HI Papa Team) [facility] Medical [facility](I Papa Team) OUTPATIENT [id number] SORE THROAT, CAN'T SWALLOW , WHITE SPOTS BACK OF THROAT X 1 DAY RAN MERINO 06/24 Released w/o Limitations [facility] Group(F HI Papa Team) [facility] Medical [facility](I Papa Team) TELE CONSULT [id number] Notes Entered by: POOL KING 01 Aug 2014 1409 ------- ------- ------- ------- -- VVC Msg: Med refill request . POOL KING 08/01 Referred for Appointment [facility] Group(F HI [facility] Team) [facility] Medical [facility](I Papa Team) OUTPATIENT [id number] THYROID DAVE ERAZO 08/02 Released w/o Limitations [facility] Medical [facility](F HI Papa Team) [facility] Medical [facility](I Papa Team) OUTPATIENT [id number] lump in right armpit x 2 months DAVE ERAZO 10/29 Released w/o Limitations [employer](F HI Papa Team) [employer]([facility] Papa Team) TELE CONSULT [id number] Notes Entered by: Enma GALLAGHER 15 Nov 2014 1319 ------- ------- ------- ------- -- HA Cordero 11/15 [employer](F HI Papa Team) [facility] Medical Group([facility] Operation al Medicine) OUTPATIENT [id number] ER f/up - right ankle pain/sw DAVE Palomo Scarlett 05/19 Released w/o Limitations [employer](W arrior Operati onal Medicin e) [facility] Medical [facility](Ort hopedic Clinic) OUTPATIENT [id number] CLOSED FRACTUR E OF FIBULA RIGHT BILL FERRERA 05/27 Released w/o Limitations [employer](O rthoped ic Clinic) [facility] Medical [facility](Phy sical Therapy) OUTPATIENT [id number] ANKLE SPRAIN RIGHT COLE URBINA 06/12 Released w/o Limitations [employer](P hysical Therapy ) [facility] Medical [facility](Phy sical Therapy) OUTPATIENT [id number] MAIRA GUAN 06/18 Released w/o Limitations [facility] Medical [facility](P hysical Therapy ) [facility] Medical [facility]) OUTPATIENT [id number] right ankle fx BILL FERRERA 06/24 Released w/o Limitations [facility] Group(O rthoped ic Clinic) [facility](Phy sical Therapy) OUTPATIENT [id number] IDALMIS ORTEGA 06/25 Released w/o Limitations [employer](P hysical Therapy ) [facility] Group(Phy sical Therapy) OUTPATIENT [id number] IDALMIS ORTEGA 06/30 Released w/o Limitations [facility] Group(P hysical Therapy ) [facility] Medical [facility](Phy sical Therapy) OUTPATIENT [id number] IDALMIS ORTEGA 07/02 Released w/o Limitations [facility] Group(P hysical Therapy ) [facility] Group(Phy sical Therapy) OUTPATIENT [id number] PATO NERI Henry 07/07 Released w/o Limitations [employer](P hysical Therapy ) [facility] Group(Phy sical Therapy) OUTPATIENT [id number] PATO NERI Henry 07/09 Released w/o Limitations [employer](P hysical Therapy ) [facility] Group(Phy sical Therapy) OUTPATIENT [id number] MAIRA GUAN 07/14 Released w/o Limitations [facility] Group(P hysical Therapy ) [facility](Phy sical Therapy) OUTPATIENT [id number] BLAISE CHAVEZ 07/16 Released w/o Limitations [facility] Group(P hysical Therapy ) [facility](Phy sical Therapy) OUTPATIENT [id number] LARRY SANTIAGO 07/21 Released w/o Limitations [facility] Group(P hysical Therapy ) [facility](Phy sical Therapy) OUTPATIENT [id number] LARRY SANTIAGO 07/23 Released w/o Limitations [facility] Group(P hysical Therapy ) [facility] Group(Phy sical Therapy) OUTPATIENT [id number] COLE URBINA 07/30 Released w/o Limitations [facility] Group(P hysical Therapy ) [facility] Operation al Medicine) TELE CONSULT [id number] Notes Entered by: Sathish MONIQUE 30 Jul 2015 0830 ------- ------- ------- ------- -- C MSG: Med refill/ MARGIE Benz 07/30 [facility](W arrior Operati onal Medicin e) [facility] Operation al Medicine) TELE CONSULT [id number] Notes Entered by: RASHEED DEJESUS 04 Aug 2015 0745 ------- ------- ------- ------- -- med refill STEVIE YANG 08/04 Other Not Elsewhere Classified [facility] Group(W arrior Operati onal Medicin e) [facility] Medical [facility] Operation al Medicine) OUTPATIENT [id number] f/y thyroid AMYMARGIE Jaffe A 08/18 Released w/o Limitations [facility] Group(W arrior Operati onal Medicin e) [facility] Medical [facility] Operation al Medicine) TELE CONSULT [id number] Notes Entered by: POOL KING 02 Sep 2015 0858 ------- ------- ------- ------- -- VVC Msg: Request for US results . POOL KING 09/02 Referred for Appointment [facility](W arrior Operati onal Medicin e) [address] [place] [address]([facility]) OUTPATIENT [id number] Routine gynecol ogic exam ZACH FLEMING 03/18 Released w/o Limitations [address] [place] [address]([facility]) [address] [place] [address]([facility]) TELE CONSULT [id number] Notes Entered by: Megan FLEMING 16 Apr 2016 1054 ------- ------- ------- ------- -- Radiolo gy Results ZACH FLEMING 04/[address] [place] [address]([facility]) [facility]) TELE CONSULT [id number] Notes Entered by: DANTE NOWAK 21 Jul 2016 1253 ------- ------- ------- ------- -- VVC- Lab Request . MARIZA COLON 07/21 Referred for Appointment [facility] on[facility]in e) [facility] Medical [facility] Operation nm Medicine) OUTPATIENT [id number] f/u thyroid AMYMARGIE Jaffe A 08/03 Released w/o Limitations [facility](W ar[facility] Operati onal Medicin e) [address] [place] [address]([facility] Medicine) TELE CONSULT [id number] Notes Entered by: DANTE NOWAK 24 Jan 2017 0744 ------- ------- ------- ------- -- VVC- Med Refill. LYNN LAUREANOJENNIFFER LUCERO 01/24 [facility](W arrior Operati onal Medicin e) [facility] Operation al Medicine) OUTPATIENT [id number] 6mo f/u. MARGIE REYES 01/25 Released w/o Limitations [facility](W ar[facility] Operati onal Medicin e) 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(V ascular Procedu re) [facility] Medicine) TELE CONSULT [id number] Notes Entered by: DANTE NOWAK 09 Aug 2017 1330 ------- ------- ------- ------- -- VVC- Lab Request . POOL KING 08/09 Other Not Elsewhere Classified [facility](W ar[facility] Operati onal Medicin e) [facility] Medicine) OUTPATIENT [id number] f/u thyroid , eval wart for removal BENIGNO BAGLEY 08/09 Released w/o Limitations [facility](W ar[facility] Operati onal Medicin e) [facility](Vas cular Procedure ) OUTPATIENT [id number] sclero ELIEL ARROYO 08/10 Released w/o Limitations [facility](V ascular Procedu re) [facility] Rolling Machine [employer]) OUTPATIENT [id number] Notes Entered by: Rolly CORCORAN 15 Sep 2017 1233 ------- ------- ------- ------- -- wart treatme nt finger MIRELLA ESTRELLA 09/15 Released w/o Limitations [facility] Rolling Machine Operator [facility]) TELE CONSULT [id number] Notes Entered by: MALCOLM GILBERT 11 Nov 2017 1008 ------- ------- ------- ------- -- Appt Request MALCOLM GILBERT 11/11 Referred for Appointment [address] [place] [address]([facility]) [address] [place] [address]([facility]) OUTPATIENT [id number] Spotsachi g between cycles TAYE JIMENEZ 11/24 Released w/o Limitations [address] [place] [address]([facility]) [address] [place] [address]([facility]) TELE CONSULT [id number] Notes Entered by: IRVING JIMENEZ 06 Dec 2017 1017 ------- ------- ------- ------- -- Pelvic US and lab results TAYE JIMENEZ 12/[address] [place] [address]([facility]) [address] [place] [address]([facility]) TELE CONSULT [id number] Notes Entered by: Chalo RAMSEY 14 Feb 2018 1246 ------- ------- ------- ------- -- Lab BENIGNO BAGLEY 02/[address] [place] [address]( [facility]) [address] [place] [address]([facility]) OUTPATIENT [id number] F/U increas ed abnorma l uterine bleedin g TAYE JIMENEZ 06/14 Released w/o Limitations [address] [place] [address]([facility]) [address] [place] [address]([facility]) TELE CONSULT [id number] Notes Entered by: IRVING JIMENEZ 11 Jul 2018 1809 ------- ------- ------- ------- -- Pelvic US results TAYE JIMENEZ 07/[address] [place] [address]([facility]) [address] [place] [address]([facility]) OUTPATIENT [id number] 7 Abnorma l uterine and vaginal bleedin g, unspeci fied JOB XAVIER 08/11 Released w/o Limitations [facility]) [facility]([place] [facility] Operation [facility]) OUTPATIENT [id number] Yearly Thyroid check. BENIGNO BAGLEY 08/18 Released w/o Limitations [facility]( arrior Operati onal Medicin e) [facility] Medical [facility]) OUTPATIENT [id number] 1 Ablatio n Consult GIGI SUGGS 11/02 Released w/o Limitations [facility] Medical [facility]) [facility]) OUTPATIENT [id number] 8 string check per JOB Jeffrey 11/23 Released w/o Limitations [facility]) [facility]) OUTPATIENT [id number] 6 f/u per GIGI Weber 12/25 Released w/o Limitations [facility] Medical [facility]) [facility]) TELE CONSULT [id number] Notes Entered by: JAZMIN SOLIZ 25 Dec 2018 1601 ------- ------- ------- ------- -- GIGI [place] 12/25 [facility]) [address] [place] [address]([facility]) TELE CONSULT [id number] Notes Entered by: LISA SUGGS 31 Jan 2019 1609 ------- ------- ------- ------- -- Shiva henry off base GIGI SUGGS 01/31 [facility] Medical [facility]) [address] [place] [address]([facility] Team E) TELE CONSULT [id number] 2 Notes Entered by: Kristin BANERJEE 28 Mar 2019 0930 ------- ------- ------- ------- -- SYMPTOM MIRANDA LEO 03/28 Referred for Appointment [facility](F amily Medicin e Team E) [employer] Team [facility]) OUTPATIENT [id number] 3 left heel pain X 1 year but worse the last 1.5 weeks TOMAS ESPINOZA 04/02 Released w/o Limitations [employer](F amily Medicin e Team E) Procedures Combined [...] AND TREATMENT PROGRAM; INTERMEDIATE, ESTABLISHED PATIENT 2005 [facility] OPHTHALMOLOGICAL SERVICES: MEDICAL EXAMINATION AND EVALUATION, WITH INITIATION OR CONTINUATION OF DIAGNOSTIC AND TREATMENT PROGRAM; INTERMEDIATE, ESTABLISHED PATIENT 2005 [facility] DETERMINATION OF REFRACTIVE STATE 2005 DoD SCREENING PAPANICOLAOU SMEAR; OBTAINING, PREPARING AND CONVEYANCE OF CERVICAL OR VAGINAL SMEAR TO LABORATORY 2003 [facility] INFLUENZA VIRUS VACCINE, TRIVALENT, LIVE (LAIV3), FOR INTRANASAL USE 2009 [facility]D OPHTHALMOLOGICAL SERVICES: MEDICAL EXAMINATION AND EVALUATION WITH INITIATION OF DIAGNOSTIC AND TREATMENT PROGRAM; COMPREHENSIVE, NEW PATIENT, 1 OR MORE VISITS 2009 DoD IMMUNIZATION ADMINISTRATION BY INTRANASAL OR ORAL ROUTE; 1 VACCINE (SINGLE OR COMBINATION VACCINE/TOXOID) 2009 [facility] TELE ASSESS & MGT SRV PROV QUAL NONPHYS HLTH CARE PRO TO EST PAT,PARENT,GUARD NOT ORIG REL ASSESS & MGT SRV PROV W/IN PREV 7 DAYS NOR LEAD ASSESS & MGT SRV/PX W/IN NXT 24 HR/SOON APT;5-10 MIN MED DIS 2018 DoD REMOVAL OF INTRAUTERINE DEVICE (IUD) 2018 [facility] ENDOMETRIAL SAMPLING (BIOPSY) WITH OR WITHOUT ENDOCERVICAL SAMPLING (BIOPSY), WITHOUT CERVICAL DILATION, ANY METHOD (SEPARATE PROCEDURE) 2018 [facility] INFECTIOUS AGENT DETECTION BY NUCLEIC ACID (DNA OR RNA), MULTIPLE ORGANISMS; AMPLIFIED PROBE(S) TECHNIQUE 2017 [facility] INFECTIOUS AGENT DETECTION BY NUCLEIC ACID (DNA [...] PROVIDE W/IN THE PREV 7 DAYS,USE THE [place] NETWORK 2016 DoD ONLINE ASSESS &MANAG SERV PROVIDE,A QUAL NONPHYS HCP TO AN ESTABLISHED PAT/GUARDIAN,NOT ORIGINAT FRM RELAT ASSESS &MANAG SERV PROVIDE W/IN THE PREV 7 DAYS,USE THE [place] NETWORK 2016 DoD ONLINE ASSESS &MANAG SERV PROVIDE,A QUAL NONPHYS HCP TO AN ESTABLISHED PAT/GUARDIAN,NOT ORIGINAT FRM RELAT ASSESS &MANAG SERV PROVIDE W/IN THE PREV 7 DAYS,USE THE [place] [employer]WORK 2015 DoD ALL POTASSIUM HYDROXIDE (MARYELLEN) PREPARATIONS 2015 DoD ONLINE ASSESS &MANAG SERV PROVIDE,A QUAL NONPHYS HCP TO AN ESTABLISHED PAT/GUARDIAN,NOT ORIGINAT FRM RELAT ASSESS &MANAG SERV PROVIDE W/IN THE PREV 7 DAYS,USE THE [place] NETWORK 2014 DoD ONLINE ASSESS &MANAG SERV PROVIDE,A QUAL NONPHYS HCP TO AN ESTABLISHED PAT/GUARDIAN,NOT ORIGINAT FRM RELAT ASSESS &MANAG SERV PROVIDE W/IN THE PREV 7 DAYS,USE THE [place] [employer]WORK 2014 DoD PHYSICAL THERAPY RE-EVALUATION 2014 DoD THERAPEUTIC PROCEDURE,1 [...] ENDURANCE, RANGE OF MOTION AND FLEXIBILITY 2014 [facility] WALKING BOOT,NON-PNEUMAT,W /W/O JOINTS,W/W/O INTERFACE MATERIAL,PREFABRIC ATED ITEM THAT HAS BEEN TRIMMED,BENT,MOLDE D,ASSEMBLED,OR OTHERWISE CUSTOMIZED TO FIT A SPECIFIC PATIENT,AN INDIV W EXPERTISE 2014 [facility] SCREENING PAPANICOLAOU SMEAR; OBTAINING, PREPARING AND CONVEYANCE OF CERVICAL OR VAGINAL SMEAR TO LABORATORY 2012 [facility] SCREENING PAPANICOLAOU SMEAR; OBTAINING, PREPARING AND CONVEYANCE OF CERVICAL OR VAGINAL SMEAR TO LABORATORY 2008 [facility] POSTOPERATIVE FOLLOW-UP VISIT, NORMALLY INCLUDED IN THE SURGICAL PACKAGE, INDICATE THAT EVALUATION & MANAGEMENT SERVICE WAS PERFORMED DURING A POSTOPERATIVE PERIOD REASON RELATED ORIGINAL PROCEDURE 2008 [facility] LAPAROSCOPIC APPENDECTOMY 2008 [facility] POSTOPERATIVE FOLLOW-UP VISIT, NORMALLY INCLUDED IN THE SURGICAL PACKAGE, INDICATE THAT EVALUATION & MANAGEMENT SERVICE WAS PERFORMED DURING A POSTOPERATIVE PERIOD REASON RELATED ORIGINAL PROCEDURE 2008 DoD POSTOPERATIVE FOLLOW-UP VISIT, NORMALLY INCLUDED IN THE SURGICAL PACKAGE, INDICATE THAT EVALUATION & MANAGEMENT SERVICE WAS PERFORMED DURING A POSTOPERATIVE PERIOD REASON RELATED ORIGINAL PROCEDURE 2008 [facility] LAPAROSCOPY, SURGICAL, APPENDECTOMY 2008 [facility] INJECTION, LEVOFLOXACIN, [address] [facility] SCREENING PAPANICOLAOU SMEAR; OBTAINING, PREPARING AND CONVEYANCE OF CERVICAL OR VAGINAL SMEAR TO LABORATORY 2007 [facility] SUBS CARE VISIT () [EXCLS:PATIENTS WHO ARE SEEN FOR A CONDITION UNREL TO / CARE (EG,AN UP RESPIR INFECT;PATIENTS SEEN FOR CONSULTATION ONLY,NOT FOR CONT CARE)] 2007 [facility] SUBSEQ CARE VISIT () [EXCLS:PATIENTS WHO ARE SEEN FOR A CONDITION UNREL TO / CARE (EG,AN UP RESPIR INFECT;PATIENTS SEEN FOR CONSULTATION ONLY,NOT FOR CONT CARE)] 2007 [facility] SUBSEQ CARE VISIT () [EXCLS:PATIENTS WHO ARE SEEN FOR A CONDITION UNREL TO / CARE (EG,AN UP RESPIR INFECT;PATIENTS SEEN FOR CONSULTATION ONLY,NOT FOR CONT CARE)] 2007 [facility] SUBSEQ CARE VISIT () [EXCLS:PATIENTS WHO ARE SEEN FOR A CONDITION UNREL TO / CARE (EG,AN UP RESPIR INFECT;PATIENTS SEEN FOR CONSULTATION ONLY,NOT FOR CONT CARE)] 2007 [facility] SUBSEQ CARE VISIT () [EXCLS:PATIENTS WHO ARE SEEN FOR A CONDITION UNREL TO / CARE (EG,AN UP RESPIR INFECT;PATIENTS SEEN FOR CONSULTATION ONLY,NOT FOR CONT CARE)] 2007 [facility] SUBSEQ CARE VISIT () [EXCLS:PATIENTS WHO ARE SEEN FOR A CONDITION UNREL TO / CARE (EG,AN UP RESPIR INFECT;PATIENTS SEEN FOR CONSULTATION ONLY,NOT FOR CONT CARE)] 2007 [facility] SUBSEQ CARE VISIT () [EXCLS:PATIENTS WHO ARE SEEN FOR A CONDITION UNREL TO / CARE (EG,AN UP RESPIR INFECT;PATIENTS SEEN FOR CONSULTATION ONLY,NOT FOR CONT CARE)] 2007 [facility] SUBSEQ CARE VISIT () [EXCLS:PATIENTS WHO ARE SEEN FOR A CONDITION UNREL TO / CARE (EG,AN UP RESPIR INFECT;PATIENTS SEEN FOR CONSULTATION ONLY,NOT FOR CONT CARE)] 2007 [facility] TISSUE EXAMINATION BY MARYELLEN SLIDE OF SAMPLES FROM SKIN, HAIR, OR NAILS FOR FUNGI OR ECTOPARASITE OVA OR MITES (EG, SCABIES) 2007 [facility] SUBSEQ CARE VISIT () [EXCLS:PATIENTS WHO ARE SEEN FOR A CONDITION UNREL TO / CARE (EG,AN UP RESPIR INFECT;PATIENTS SEEN FOR CONSULTATION ONLY,NOT FOR CONT CARE)] 2007 [facility] SUBSEQ CARE VISIT () [EXCLS:PATIENTS WHO ARE SEEN FOR A CONDITION UNREL TO / CARE (EG,AN UP RESPIR INFECT;PATIENTS SEEN FOR CONSULTATION ONLY,NOT FOR CONT CARE)] 2006 [facility] SUBSEQ CARE VISIT () [EXCLS:PATIENTS WHO ARE SEEN FOR A CONDITION UNREL TO / CARE (EG,AN UP RESPIR INFECT;PATIENTS SEEN FOR CONSULTATION ONLY,NOT FOR CONT CARE)] 2006 [facility] URINE TEST, BY VISUAL COLOR COMPARISON METHODS 2006 [facility] INITIAL CARE VISIT (REPORT AT 1ST ENCOUN W HEALTH HOME CARE PHYSICAL THERAPIST PROVIDING OBSTETRIC CARE. REPORT ALSO DATE OF VISIT &,IN A SEPARATE FIELD,THE DATE OF THE LAST MENSTRUAL PERIOD) 2006 [facility] SCREENING PAPANICOLAOU SMEAR; OBTAINING, PREPARING AND CONVEYANCE OF CERVICAL OR VAGINAL SMEAR TO LABORATORY 2006 [facility] PRESCRIPTION OF OPTICAL AND PHYSICAL CHARACTERISTICS OF AND FITTING OF CONTACT LENS, WITH MEDICAL SUPERVISION OF ADAPTATION; CORNEAL LENS, BOTH EYES, EXCEPT FOR APHAKIA 2006 [facility] Non-Physician Phone Call To Patient/Provider Brief (5-10min) Non-Physician Phone Call To Patient/Provider Brief (5-10min) [id number] [facility] Endometrial Biopsy By Suction Endometrial Biopsy By Suction [address] [facility] Gynecologic Services Intrauterine Device (IUD) Insertion Gynecologic Services Intrauterine Device (IUD) Insertion [id number] [facility] Vaginal MARYELLEN Prep Vaginal MARYELLEN Prep 99073 2017 TAYE JIMENEZ Vaginal Wet [place] Vaginal Wet [place]ear 55761 2017 TAYE JIMENEZ Screening papanicolaou smear; obtaining, preparing and conveyance of cervical or vaginal smear to laboratory 2017 TAYE JIMENEZ All pota ium hydroxide (maryellen) preparations 2017 TAYE JIMENEZ Non-Physician Phone Call To Patient/Provider Brief (5-10min) Non-Physician Phone Call To Patient/Provider Brief (5-10min) 95093 2017 MALCOLM GILBERT Destruction Of Benign Lesion By Cryosurgery Destruction Of Benign Lesion By Cryosurgery 32987 2016 MIRELLA ESTRELLA Destruction Of Flat Warts By Cryosurgery Up To 14 Lesions Destruction Of Flat Warts By Cryosurgery Up To 14 Lesions 84171 2016 LAZARUS REA Sclerosing Multiple Veins By [...] concerns . Surgeon : Dr. Eliel Arroyo [facility] Internet Med Svc Qual [facility] Prof Estab Patient Internet Med Svc Qual [facility] Prof Estab Patient 98363 2016 POOL KING Internet Med Svc Qual [facility] Prof Estab Patient Internet Med Svc Qual [facility] Prof Estab Patient [address] [facility] Internet Med Svc Qual [facility] Prof Estab Patient Internet Med Svc Qual [facility] Healthcare Prof Estab Patient 34261 2015 MARIZA COLON DoD All pota ium hydroxide (maryellen) preparations [address] [facility] Internet Med Svc Qual [facility] Prof Estab Patient Internet Med Svc Qual [facility] Prof Estab Patient [address] [facility] Internet Med Svc Qual [facility] Prof Estab Patient Internet Med Svc Qual [facility] Healthcare Prof Estab Patient [address] [facility] Physical Medicine Physical Therapy Re-Evaluation Physical Medicine Physical Therapy Re-Evaluation [address] [facility] Physical Therapy: ___ Se ion Segments, 15 Minutes Each Physical Therapy: ___ Session Segments, 15 Minutes Each 29988 2014 LARRY SANTIAGO x 25 min DoD Physical Therapy Neuromuscular Re-education Physical Therapy Neuromuscular Re-education 37619 2014 LARRY SANTIAGO x 10 min DoD Physical Therapy Neuromuscular Re-education Physical Therapy Neuromuscular Re-education 11391 2014 LARRY SANTIAGO x 10 min DoD Physical Therapy: ___ Se ion Segments, 15 Minutes Each Physical Therapy: ___ Session Segments, 15 Minutes Each 52727 2014 LARRY SANTIAGO x 25 min DoD Physical Therapy: ___ Se ion Segments, 15 Minutes Each Physical Therapy: ___ Session Segments, 15 Minutes Each 28022 2014 BLAISE CHAVEZ tx 30 min DoD Physical Therapy: ___ Se ion Segments, 15 Minutes Each Physical Therapy: ___ Session Segments, 15 Minutes Each 19361 2014 MAIRA GUAN DoD Physical Therapy: ___ Se ion Segments, 15 Minutes Each Physical Therapy: ___ Session Segments, 15 Minutes Each 12975 2014 NERI WHYTE Service time x40min DoD Physical Therapy: ___ Se ion Segments, 15 Minutes Each Physical Therapy: ___ Session Segments, 15 Minutes Each 92600 2014 NERI WHYTE Service time x30min DoD Physical Therapy: ___ Se ion Segments, 15 Minutes Each Physical Therapy: ___ Session Segments, 15 Minutes Each 16885 2014 IDALMIS ORTEGA DoD Physical Therapy: ___ Se ion Segments, 15 Minutes Each Physical Therapy: ___ Session Segments, 15 Minutes Each 60904 2014 IDALMIS ORTEGA Physical Therapy: ___ Se ion Segments, 15 Minutes Each Physical Therapy: ___ Session Segments, 15 Minutes Each 82264 2014 IDALMIS ORTEGA Physical Therapy: ___ Se ion Segments, 15 Minutes Each Physical Therapy: ___ Session Segments, 15 Minutes Each 39188 2014 MAIRA GUAN Exercises A isted Exercises For ROM Exercises Assisted Exercises For ROM 63321 2014 COLE URBINA Physical Medicine Physical Therapy Evaluation Physical Medicine Physical Therapy Evaluation 31065 2014 COLE URBINA Screening papanicolaou smear; obtaining, preparing and conveyance of cervical or vaginal smear to laboratory 2012 BLANK BRASHER Inf Agt Antig Det Nucleic Acid Dir Probe Human Papillomavir Inf Agt Antig Det Nucleic Acid Dir Probe Human Papillomavir 05222 2012 BLANK BRASHER Immunization Admin By Intranasal / Oral Route One Vaccine Immunization Admin By Intranasal / Oral Route One Vaccine 93285 2009 JOSE L UP Influenza Virus Vaccine Live Intranasal 2009 [facility] Ophthalmological New Patient Start Comprehensive Care Ophthalmological New Patient Start Comprehensive Care 38937 2009 PRESSGUERO Prescription & Fitting Bilateral Corneal Lenses (Not Aphakia Prescription & Fitting Bilateral Corneal Lenses (Not Aphakia 58250 2009 PRESSGUERO Determination Of Refractive State Determination Of Refractive State 17435 2009 PRESSGUERO Immunization Admin By Intranasal / Oral Route One Vaccine Immunization Admin By Intranasal / Oral Route One Vaccine 78893 2009 CHANDRA MARTÍNEZ Influenza Virus Vaccine Pandemic Formulation Influenza Virus Vaccine Pandemic Formulation 62976 2009 CHANDRA MARTÍNEZ Screening papanicolaou smear; obtaining, preparing and conveyance of cervical or vaginal smear to laboratory [address]Supervised Specimen Handling / Transfer: Office To Lab -Supervised Specimen Handling / Transfer: Office To Lab 59060 2008 MANI ESPINAL Postoperative Visit, Without Charge Postoperative Visit, Without Charge 16[address] [facility] Cervical Pap Smear Cervical Pap Smear [address] [facility] OB Services Antepartum Care Only Subsequent Single Visit OB Services Antepartum Care Only Subsequent Single Visit 0502F 2007 MARIBEL, TUAN L [facility] OB Services Antepartum Care Only Subsequent Single Visit OB Services Antepartum Care Only Subsequent Single Visit 0502F [address] [facility] Screening papanicolaou smear; obtaining, preparing and conveyance of cervical or vaginal smear to laboratory [address] [facility] Prescription & Fitting Bilateral Corneal Lenses (Not Aphakia Prescription & Fitting Bilateral Corneal Lenses (Not Aphakia [address] [facility] Visual Faust Test Limited Examination Visual Faust Test Limited Examination [address] [facility] Determination Of Refractive State Determination Of Refractive State [address] [facility] Ophthalmological New Patient Start Comprehensive Care Ophthalmological New Patient Start Comprehensive Care 79657 2006 BHAVNA SUAREZ Ophthalmological Prior Patient Start Intermediate Level Care Ophthalmological Prior Patient Start Intermediate Level Care [address] [facility] Ophthalmological Prior Patient Start Intermediate Level Care Ophthalmological Prior Patient Start Intermediate Level Care 97996 2005 BILL SHRESTHA Determination Of Refractive State Determination Of Refractive State 21790 2005 BILL SHRESTHA Ophthalmological New Patient Start Comprehensive Care Ophthalmological New Patient Start Comprehensive Care 41720 2005 BILL SHRESTHA Closure Of The Lacrimal Punctum By Plug (Each) Closure Of The Lacrimal Punctum By Plug (Each) 58130 2005 BILL SHRESTHA Social History Combined list of available smoking, [...] Plan No data available for this section 05/08/2025 Ambulatory Pharmacy Functional Status Combined list of recent functional and cognitive assessments recorded at [facility] [employer] [facility] Functional Lewis Measurement (FIM) Scale: 1 = Total Assistance (Subject = 0% +), 2 = Maximal Assistance (Subject = 25% +), 3 = Moderate Assistance (Subject = 50% +), 4 = Minimal Assistance (Subject = 75% +), 5 = Supervision, 6 = Modified Lewis (Device), 7 = Complete Lewis (Timely, Safely). Assessment Date/Time Source Assessment Type Assessment Skill Assessment Score Assessment Details No data available for this section
--- OUTSIDE RECORDS SUMMARY | 2025-05-08 08:39 | XMS_ITS | Clinical Summary ---
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 2 Active UNABLE TO FINDIndications [...] 2024 10/13/2021, 12/26/2020, 11/28/2020 Influenza Vaccine (#1) 2025 6, 08/25/2010, 09/05/2007, Additional history exists Pneumococcal vaccine <65 Aged Out No longer eligible based on patient's age to complete this topic Medical Devices Implanted Type Area Actuarial Trainee Device Identifier Shelf Expiration Date Model / Serial / Lot [employer] 13.4cm High Strength Cohesive Plus Smooth P5.3cm High Projection [id number] - [id number] - [id number] Implanted:Qty: 1 on 02/23/2023 by Andrzej Miles MD at [facility] Breast Left: Breast [employer] 11/05/2027 00369-018 HP / [id number] / Description:Implant pause do ne prior to opening all implants [employer] 13.4cm High Strength Cohesive Plus Smooth P5.3cm High Projection [id number] - [id number] - [id number] Implanted:Qty: 1 on 02/23/2023 by Andrzej Miles MD at [facility] Breast Right: Breast [employer] 11/14/2027 10907-184 / [id number] / [employer] Magseed 18ga 7cm Marker Breast Biopsy [id number] - [id number] Implanted:Qty: 1 on 09/27/2022 at [facility] Right: Breast [employer] [id number] 06/16/2026 [id number] / / [id number] [employer] Alloderm Select 39k66ce Allograft Regenerative Thk.4-2.4mm Thick [id number] - [id number] Implanted:Qty: 1 on 11/18/2022 by Andrzej Miles MD at [facility] Left: Breast [employer] 02/14/2024 [id number] / / [id number] Description:Implant pause do ne prior to opening all implants [employer] Alloderm Select 27a79sy Allograft Regenerative Thk.4-2.4mm Thick [id number] - [id number] Implanted:Qty: 1 on 11/18/2022 by Andrzej Miles MD at [facility] Right: Breast [employer] 02/14/2024 [id number] / / [id number] Explanted Type Area Actuarial Trainee Device Identifier Shelf Expiration Date Model / Serial / Lot [employer] Implant Mammary Natrelle Te Smooth 712w-Kv-35-T With Fourte 972f-Bi-91-T - [id number] - [id number] Implanted:Qty: 1 on 11/18/2022 by Andrzej Miles MD at [facility] Explanted:Qty: 1 on 02/23/2023 by Andrzej Miles MD at [facility] Left: Breast [employer] 01/12/2027 133S-MX-13 -T / [id number] / [id number] Description:Filled with 100m l saline [employer] Implant Mammary Natrelle Te Smooth 708b-Mp-27-T With Fourte 059w-Nq-46-T - [id number] - [id number] Implanted:Qty: 1 on 11/18/2022 by Andrzej Miles MD at [facility] Explanted:Qty: 1 on 02/23/2023 at [facility] Right: Breast [employer] 02/19/2027 133S-MX-13 -T / [id number] / Description:Filled with 100m l saline Upon explantation, lot # [id number] noted Insurance [facility] HMO/PPO Address: [address] [address] [place], [place] [id number] [place] [address] [facility] CHOICE [facility] HMO/PPO Address: [address] [address] [place], [place] [id number] [place] [address] [facility] Address: [facility] [address] [place] [address] Care Teams Sprinkler Helper Relationship Specialty Start Date End Date Ori Lucas MD [address] [place] [address] PCP - General Family Medicine 08/24/22 Rajan Adams MD [address] [place] [address] Referring Physician Obstetrics and Gynecology 07/14/22 Rajan Adams MD [address] [place] [address] Referring Physician Obstetrics and Gynecology 08/24/22
[2025-05-08 14:59] LABS: Hematocrit 40.5 % (37.0-47.0); Hemoglobin 12.9 g/dL (12.0-15.0); Immature Granulocyte Percent A 0.6 % (0-0.5); Lymphocytes Absolute Auto 1.95 K/mm3 (0.9-3.2); Mean Corpuscular HGB Conc 31.9 g/dl (32-36); Mean Corpuscular Hemoglobin 29.8 pg (26-34); Mean Corpuscular Volume 93.5 fl (80-100); Nucleated Red Blood Cells Absolute Auto 0.000 K/mm3 (0.0-0.012); Nucleated Red Blood Cells Perc 0.0 % (0.0-0.2); Platelet Count Result 266 k/mm3 (150-375); Red Blood Count 4.33 M/mm3 (4.2-5.4); White Blood Count 6.3 K/mm3 (4.5-10.0)
[2025-05-08 15:31] LABS: Alanine Aminotransferase 23 U/L (6-35); Albumin Level 4.2 g/dL (3.5-5.1); Alkaline Phosphatase 51 U/L (38-126); Anion Gap 6 mmol/L (4-12); Aspartate Amino Transferase 44 U/L (14-36); Bilirubin,Total 0.6 mg/dL (0.2-1.3); Blood Urea Nitrogen 16 mg/dL (7-17); Calcium 9.1 mg/dL (8.4-10.2); Carbon Dioxide 26 mmol/L (22-30); Chloride 103 mmol/L (98-107); Cholesterol 217 mg/dL (0-200); Estimated Glomerular Filt Rate > 60; Glucose 69 mg/dL (65-110); HDL Direct 72 mg/dL; Potassium 4.5 mmol/L (3.4-5.0); Sodium 135 mmol/L (137-145); Total Protein 7.2 g/dL (6.3-8.2); Triglycerides 66 mg/dL (<150)
[2025-05-08 16:06] LABS: Thyroid Stimulating Hormone 2.310 uIU/mL (0.465-4.680)
== END 2025-05-08 08:35 | disposition home or self-care (01) ==
LOC: ANHGOSHLAB 08:35
PROVIDERS: PCP Family Medicine; Visit Provider Family Medicine
DX: E78.5 Hyperlipidemia, unspecified (principal); N85.2 Hypertrophy of uterus; E03.9 Hypothyroidism, unspecified; Z11.59 Encounter for screening for other viral diseases
CPT/HCPCS: 36415; 80053; 80061; 84443; 85025; 86803